=== PATIENT | male | born 1935 | race Caucasian/White ===

== ENCOUNTER 2017-03-15 11:46 | Emergency (ER) | payer MEDICARE, OTHER ==
[~2017-03-15] VITALS: Ht 170.2 cm; Wt 89.0 kg
[2017-03-15 11:50] VITALS: Ht 170.2 cm; Wt 89.0 kg
[2017-03-15] MEDS ORDERED: SOD CHLORIDE 0.9% 1,000 ML IV STA (12:09)
[2017-03-15] MEDS ORDERED: ONDANSETRON 4 MG INJ IV STA (12:09)
[2017-03-15] MEDS ORDERED: HYDROmorphONE 1 MG/ML SYG IV STA (12:09)
--- NOTE | 2017-03-15 12:12 | ERA ---
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 Patient states he has had this occurrence 3 mornings in a row every time he bends over. He denies pain any other time during the day. Patient is using doxycycline daily for recent diagnosis of folliculitis. He denies fevers or chills, no vomiting or diarrhea, no chest pain or shortness of breath, no blood per rectum or melena. ROS All systems reviewed and are negative except as per history of present illness. Medications Home Meds Active Scripts Ibuprofen* (Ibuprofen*) 600 Mg Tablet, 600 MG PO Q8 for PAIN AND/OR INFLAMMATION , #30 TAB Prov:TAYLOR NELSON MD 03/15/17 Reported Medications Clindamycin* Topical (Clindamycin* Topical) 1 %-60 Ml Solution, 1 APPLIC TOP BID , EA 03/15/17 Finasteride* (Finasteride*) 5 Mg Tablet, 5 MG PO DAILY, TAB 03/15/17 Levothyroxine Sodium* (Synthroid*) 125 Mcg Tablet, 125 MCG PO BEFORE BREAKFAST, #30 TAB 03/15/17 Valacyclovir Hcl* (Valacyclovir Hcl*) 500 Mg Tablet, 1000 MG PO DAILY, TAB 03/15/17 Doxycycline* (Vibramycin*) 100 Mg Tab, 50 MG PO DAILY, TAB 03/15/17 Docusate Sodium* (Colace*) 100 Mg Capsule, 100 MG PO BID Y for CONSTIPATION, # 60 CAP 03/15/17 Polyethylene Glycol* (Miralax*) 17 Gm Powd.pack, 17 GM PO DAILY, #30 PACKET 03/15/17 Hydrocortisone* Topical (Hydrocortisone* Topical) 0.5%- 28.35 Gm Oint, 1 APPLIC TOP BID, TUB 03/15/17 Allergies Allergies: Coded Allergies: No Known Allergy (Unverified , 03/15/17) PMhx/Soc Satiety, chronic constipation, recent colonoscopy which revealed large diverticula, Hypothyroidism FmHx Family History: No diabetes Physical Exam Vitals Vital Signs Date Time Temp Pulse Resp B/P Pulse Ox O2 Delivery O2 Flow Rate FiO2 03/15/17 11:50 98.2 99 18 188/85 99 Physical Exam GENERAL: Well-developed, well-nourished, mild discomfort, afebrile HEENT: Moist mucous membranes, pink conjunctiva, no cervical spine tenderness or step-off deformities, no goiter, no jaundice or icterus, extraocular movements intact without pain. No submandibular induration, and no pharyngeal erythema NEURO: Alert and oriented 3, cranial nerves II through XII intact bilaterally, pupils equal round reactive to light, no focal deficits or facial asymmetry, sensation intact distally Strength 5/5 in upper and lower extremities bilaterally CARDIAC: Regular rate and rhythm, no murmurs rubs or gallops LUNGS: Clear bilaterally no wheezing crackles or stridor ABDOMEN: Soft nontender, no guarding, no rigidity, no rebound, no psoas sign no obturator sign. Normoactive bowel sounds SKIN: Warm and dry to touch, no abrasions, contusions, or hematomas, no lacerations, no ecchymosis, no target lesions, and without ulcers EXTREMITIES: No clubbing cyanosis or edema, calves are bilaterally symmetrical, no Homans sign, no popliteal cord sign. Distal pulses equal and bilateral PSYCH: Normal affect without agitation or irritability Result Diagram: 03/15/17 1215 03/15/17 1215 Results 24 hrs Laboratory Tests Test 03/15/17 12:15 White Blood Count 4.310^3/ul Red Blood Count 4.8110^6/ul Hemoglobin 16.1g/dl Hematocrit 46.1% Mean Corpuscular Volume 95.8fl Mean Corpuscular Hemoglobin 33.5pg Mean Corpuscular Hemoglobin Concent 34.9g/dl Red Cell Distribution Width 11.9% Platelet Count 06776^3/UL Mean Platelet Volume 10.5fl Neutrophils % 72.1% Lymphocytes % 20.0% Monocytes % 7.0% Eosinophils % 0.2% Basophils % 0.5% Nucleated Red Blood Cells % 0.0/100WBC Neutrophils # 3.110^3/ul Lymphocytes # 0.910^3/ul Monocytes # 0.310^3/ul Eosinophils # 0.010^3/ul Basophils # 0.010^3/ul Nucleated Red Blood Cells # 0.010^3/ul Prothrombin Time 12.6Sec Prothrombin Time Ratio 1.0 INR International Normalized Ratio 0.94 Urine Color YELLOW Urine Clarity CLEAR Urine pH 8.0 Urine Specific Sumner 1.006 Urine Ketones NEGATIVEmg/dL Urine Nitrite NEGATIVEmg/dL Urine Bilirubin NEGATIVEmg/dL Urine Urobilinogen NEGATIVEmg/dL Urine Leukocyte Esterase NEGATIVELeu/ul Urine Hemoglobin NEGATIVEmg/dL Urine Glucose NEGATIVEmg/dL Urine Total Protein NEGATIVEmg/dl Sodium Level 140mmol/L Potassium Level 4.3mmol/L Chloride Level 105mmol/L Carbon Dioxide Level 26mmol/L Anion Gap 13 Blood Urea Nitrogen 11mg/dl Creatinine 0.87mg/dl Glucose Level 109mg/dl Calcium Level 9.9mg/dl Total Bilirubin 0.9mg/dl Direct Bilirubin 0.00mg/dl Indirect Bilirubin 0.9mg/dl Aspartate Amino Transf (AST/SGOT) 24IU/L Alanine Aminotransferase (ALT/SGPT) 32IU/L Alkaline Phosphatase 68IU/L Total Protein 7.6g/dl Albumin 4.6g/dl Globulin 3.00g/dl Albumin/Globulin Ratio 1.53 Lipase 182U/L Current Medications Medications (Trade) Dose Ordered Sig/Orquidea Route PRN Reason Start Time Stop Time Status Last Admin Dose Admin Hydromorphone HCl (Dilaudid) 1 mg ONCE STAT IV 03/15/17 12:09 03/15/17 12:12 DC Ondansetron HCl (Zofran Inj) 4 mg ONCE STAT IV 03/15/17 12:09 03/15/17 12:12 DC 03/15/17 12:36 Alprazolam 0.5 mg 0.5 mg ONCE ONCE PO 03/15/17 12:30 03/15/17 12:31 DC 03/15/17 12:36 Sodium Chloride (NS) 1,000 ml @ 1,000 mls/hr Q1H STAT IV 03/15/17 12:09 03/15/17 13:08 DC 03/15/17 12:37 Procedures/MDM IV line was established patient was placed on teletypesetter monitor rhythm strip revealed a sinus rhythm at about 70 bpm with upright P and T waves. Patient was afebrile. EKG performed, read by me: 71 bpm, normal sinus rhythm, normal axis, no acute ST segment changes, narrow QRS complex, with good R-wave progression in precordial leads. I administered 1 L normal saline intravenously, hydromorphone 1 mg IV, and alprazolam 0.5 mg p.o. for symptoms. Patient also received Zofran 4 mg IV with good response. CBC and electrolytes were normal, liver function tests were normal, troponin was negative, urine analysis was negative for infection. Departure Diagnosis: Primary Impression: Inguinal hernia TAYLOR NELSON MD Mar 15, 2017 12:12
[2017-03-15] MEDS ORDERED: ALPRAZOLAM 0.25 MG TAB PO ONE (12:30)
[2017-03-15 12:41] LABS: BASOPHILS % 0.5 % (0.0-2.0); EOSINOPHILS % 0.2 % (0.0-7.0); HEMATOCRIT 46.1 % (42.0-52.0); HEMOGLOBIN 16.1 g/dl (14.0-18.0); LYMPHOCYTES # 0.9 10^3/ul (0.8-2.9); MEAN CORPUSCULAR HEMOGLOBIN 33.5 pg (29.0-33.0); MEAN CORPUSCULAR HGB CONC 34.9 g/dl (32.0-37.0); MEAN CORPUSCULAR VOLUME 95.8 fl (82.0-101.0); MEAN PLATELET VOLUME 10.5 fl (7.4-10.4); MONOCYTE # 0.3 10^3/ul (0.3-0.9); NEUTROPHIL # 3.1 10^3/ul (1.6-7.5); NEUTROPHILS % 72.1 % (39.0-77.0); PLATELET COUNT 211 10^3/UL (140-415); RED BLOOD COUNT 4.81 10^6/ul (4.70-6.10); RED CELL DISTRIBUTION WIDTH 11.9 % (11.5-14.5); WHITE BLOOD COUNT 4.3 10^3/ul (4.8-10.8)
[2017-03-15 12:42] LABS: ADD UMIC NO; UR ASCORBIC ACID NEGATIVE (NEGATIVE); UR BILIRUBIN (Dip) NEGATIVE (NEGATIVE); UR BLOOD (Dip) NEGATIVE (NEGATIVE); UR CLARITY CLEAR (CLEAR); UR COLOR YELLOW (YELLOW); UR GLUCOSE (Dip) NEGATIVE (NEGATIVE); UR KETONES (Dip) NEGATIVE (NEGATIVE); UR LEUKOCYTE ESTERASE (Dip) NEGATIVE Leu/ul (NEGATIVE); UR NITRITE (Dip) NEGATIVE (NEGATIVE); UR SPECIFIC GRAVITY (Dip) 1.006 (1.003-1.030); UR TOTAL PROTEIN (Dip) NEGATIVE (NEGATIVE); UR UROBILINOGEN (Dip) NEGATIVE (NEGATIVE)
[2017-03-15 13:07] LABS: ALBUMIN 4.6 g/dl (3.3-4.9); ALBUMIN/GLOBULIN RATIO 1.53; BILIRUBIN,INDIRECT 0.9 mg/dl (0-1.1); BILIRUBIN,TOTAL 0.9 mg/dl (0.2-1.3); CALCIUM 9.9 mg/dl (8.4-10.2); CREATININE 0.87 mg/dl (0.61-1.24); POTASSIUM 4.3 mmol/L (3.5-5.1); TOTAL PROTEIN 7.6 g/dl (6.1-8.1)
[2017-03-15 13:26] LABS: INR 0.94; PROTIME 12.6 Sec (12.2-14.2)
--- NOTE | 2017-03-15 14:01 | RADRPT ---
PROCEDURE: CT Abdomen and Pelvis without contrast. CLINICAL INDICATION: Abdominal and right groin pain TECHNIQUE: CT scan of the abdomen and pelvis without contrast was performed on a multidetector hig h-resolution CT scanner. The patient was scanned without intravenous contrast. Coronal and sagittal reformatted images were obtained from the axial source images. Images were reviewed on a high-resol [employer] PACS workstation. The total exam CTDI equals 13.67 mGy and the total exam DLP equals 869.02 mG y-cm. One or more of the following dose reduction techniques were used: Automated exposure control. Adjustment of the mA and/or kV according to patient size. Use of iterative reconstruction technique. COMPARISON: None FINDINGS: CT abdomen: The lung bases are clear. The heart size is normal, without pericardial thickening or effusion. Th e liver is normal in size and density without focal mass or intrahepatic biliary dilatation. The sp mary is normal in size and homogeneous in density. The stomach is partially collapsed, but is gross ly unremarkable. The pancreas as visualized is normal. The gallbladder is unremarkable. There is n o evidence for biliary dilatation. The adrenal glands are symmetric and normal. The kidneys are normal in size with no hydronephrosis. There is a punctate 2 mm nonobstructing stone in the lower pole right kidney. There is no ureteral stone. There is nonspecific bilateral perineph heavenly fatty stranding. There is mild ectasia of the infrarenal abdominal aorta measures up to 3 cm. There is no retroperito daron lymphadenopathy. The pablo hepatis region is clear. The bowel and mesentery, as visualized, a re equally unremarkable. CT pelvis: The small bowel loops situated within the pelvis are unremarkable. There is a fat-containing small r ight inguinal hernia. Vasectomy clips are noted. The pelvic organs are normal. The pelvic sidewalls and inguinal regions are clear. The sigmoid colon and rectum are remarkable for sigmoid diverticul osis. No mass, lymphadenopathy, or free fluid is seen. No acute inflammation is seen. The surroun ding osseous structures are remarkable for degenerative spondylosis of the spine. No osteolytic or osteoblastic lesion is detected. IMPRESSION: 1. No mass, lymphadenopathy, or focal acute inflammatory process is identified. 2. Punctate 2 mm nonobstructing stone in the lower pole right kidney. No hydronephrosis. No uretera l stone. 3. Fat containing small right inguinal hernia. 4. Mild ectasia of the infrarenal abdominal aorta measures up to 3 cm with scattered atheroscleroti c calcifications. 5. Sigmoid diverticula without evidence of acute diverticulitis. RPTAT: BB .Dejah Zapata MD, Date Time Electronically viewed and signed by .Dejah Zapata MD, on 03/15/2017 14:00 .O/
[2017-03-15] MEDS ORDERED: HC.5O30 TOP (14:29)
[2017-03-15] MEDS ORDERED: POLY17PO6 PO (14:30)
[2017-03-15] MEDS ORDERED: DOCU-144 PO (14:30)
[2017-03-15] MEDS ORDERED: VALA500T PO (14:31)
[2017-03-15] MEDS ORDERED: DOXY100T2 PO (14:31)
[2017-03-15] MEDS ORDERED: FINA5TAB4 PO (14:32)
[2017-03-15] MEDS ORDERED: LEVO125T PO (14:32)
[2017-03-15] MEDS ORDERED: CLI60SOL TOP (14:33)
[2017-03-15] MEDS ORDERED: IBUP-1542 PO (14:53)
[2017-03-15 15:08] VITALS: BP 162/76; PULSE 72; RESP 18; TEMP 97.8
== END 2017-03-15 15:09 | disposition home or self-care (01) ==
LOC: E/R 11:46
DX: K40.90 Unilateral inguinal hernia, without obstruction or gangrene, not specified as recurrent (principal); E03.9 Hypothyroidism, unspecified
CPT/HCPCS: 36415; 74176; 80053; 81003; 83690; 85025; 85610; 87086; 93005; 96374; 99285; J2405; J7030

== ENCOUNTER 2017-03-26 15:43 | Inpatient (IN) | END 2017-04-02 18:20 | disposition home or self-care (01) | DRG 351 | DX: K40.20 Bilateral inguinal hernia, without obstruction or gangrene, not specified as recurrent (principal); E87.1 Hypo-osmolality and hyponatremia; D64.89 Other specified anemias; B00.52 Herpesviral keratitis; E89.0 Postprocedural hypothyroidism; N40.0 Benign prostatic hyperplasia without lower urinary tract symptoms; Z98.890 Other specified postprocedural states; Z87.891 Personal history of nicotine dependence; K59.00 Constipation, unspecified; R33.9 Retention of urine, unspecified; I95.1 Orthostatic hypotension; N50.89 Other specified disorders of the male genital organs ==

== ENCOUNTER 2017-04-16 14:21 | Inpatient (IN) | payer MEDICARE, BC ==
[~2017-04-16] VITALS: Ht 180.3 cm; Wt 79.5 kg
[~2017-04-16 14:21] MED LIST: BETH25TA PO; CLI60SOL TOP; DOCU-144 PO; DOXY100T2 PO; FINA5TAB4 PO; HC.5O30 TOP; HYDR-3498 PO; IBUP-1542 PO; LEVO125T PO; POLY17PO6 PO; TAMS-14 PO; VALA500T PO
[2017-04-16] MEDS ORDERED: FAMOTIDINE 20 MG INJ IV STA (14:23)
[2017-04-16] MEDS ORDERED: ONDANSETRON 4 MG INJ IV STA (14:23)
[2017-04-16] MEDS ORDERED: SOD CHLORIDE 0.9% 1,000 ML IV STA (14:23)
[2017-04-16] MEDS ORDERED: morphine 4 MG/ML VIAL IV STA ×2 (14:23→16:38)
--- NOTE | 2017-04-16 15:03 | RADRPT ---
PROCEDURE: CT Abdomen and Pelvis without contrast. CLINICAL INDICATION: Hernia, pain TECHNIQUE: CT of the abdomen and pelvis was performed on a multi-detector scanner without IV contr ast. Coronal and sagittal images were reformatted from the axial data set. One or more of the foll owing dose reduction techniques were used: automated exposure control, adjustment of the mA and/or k V according to patient size, use of iterative reconstruction technique. CTDI = 12.49 mGy. DLP = 799 .27 mGy-cm. COMPARISON: CT, 03/15/2017 FINDINGS: The lung bases are clear. The heart size is normal, without pericardial effusion. Liver, gallbladd er, biliary tree, pancreas, spleen, adrenal glands and left kidney are unremarkable. Small nonobstru ctive right renal calculus is identified, without ureterolithiasis or obstructive uropathy. The stom ach is grossly unremarkable. The aorta is of normal caliber. Aortic vascular calcifications are present. There is no retroperit archer lymphadenopathy. The pablo hepatis region is clear. No bowel obstruction, free intraperitoneal air or abscess is identified. Scattered colonic diverticu la are seen without diverticulitis. There is no appendicitis or colitis. The patient is status post right inguinal hernia repair. Low density fluid collection is identified in the anterior right pelvi s, measuring 13 x 6 x 5 cm. Additional low density fluid collection is seen in the right inguinal ca nal, measuring 8 x 3 x 3 cm. No solid pelvic mass, free fluid, or lymphadenopathy is identified. The surrounding osseous structures are remarkable for degenerative enthesopathy of the spine. No os teolytic or osteoblastic lesion is detected. IMPRESSION: 1. The patient appears to be status post right inguinal hernia repair. Large low density fluid darrius ections are identified in the surgical bed measuring up to 13 cm in maximal dimension, as described above, new when compared to prior exam, most likely postoperative seromas. No evidence of inflammati on is seen - there is no evidence to suggest abscess. 2. Small nonobstructive right renal calculus is seen, without ureterolithiasis or obstructive uropa thy. 3. Aortoiliac atherosclerotic calcifications are present. 4. Scattered colonic diverticula are seen without diverticulitis. RPTAT: [id number] .Eduardo Arce MD, MD Date Time Electronically viewed and signed by .Eduardo Arce MD, MD on 04/16/2017 15:03 .R/
[2017-04-16 15:12] VITALS: Ht 180.3 cm; Wt 79.5 kg
[2017-04-16] MEDS ORDERED: SOD CHLORIDE 0.9% 1,000 ML IV SCH (15:28)
[2017-04-16] MEDS ORDERED: ONDANSETRON 4 MG INJ IV PRN ×2 (15:30→16:00)
[2017-04-16] MEDS ORDERED: ACETAMINOPHEN 325 MG TAB PO PRN (15:30)
--- NOTE | 2017-04-16 15:33 | ERD ---
ER Documentation Chief Complaint Chief Complaint groin pain R>L x3 days; worse today. p hernia surgery HPI This is an 81-year-old male who is status post right inguinal hernia repair who presents to the emergency room after being evaluated by his primary care physician in office. This patient's primary care physician is Dr. olson about this patient over to the emergency room for evaluation of right sided abdominal pain. The patient describes pain as a sharp pain worse with any movement. The patient was operated on by our general surgeon Dr. Haney. He states that he is having pain but denies any vomiting or diarrhea when he localizes the pain to the right groin area with no radiation. ROS All systems reviewed and are negative except as per history of present illness. Medications Home Meds Active Scripts Tamsulosin Hcl* (Flomax*) 0.4 Mg Cap.er.24h, 0.4 MG PO HS for 30 Days, #30 CAP Prov:KATERINA OLSON MD- 04/02/17 Hydrocodone Bit-Acetaminophen (Hydrocodone Bit-APAP) 5-325MG Tablet, 1 TAB PO Q4H Y for PAIN 4-6 for 30 Days, #75 TAB Prov:KATERINA OLSON MD- 04/02/17 Bethanechol Chloride* (Bethanechol Chloride*) 25 Mg Tablet, 25 MG PO TID for 7 Days, #21 TAB Prov:KATERINA OLSON MD- 04/02/17 Ibuprofen* (Ibuprofen*) 600 Mg Tablet, 600 MG PO Q8 for PAIN AND/OR INFLAMMATION , #30 TAB Prov:TAYLOR NELSON MD 03/15/17 Reported Medications Clindamycin* Topical (Clindamycin* Topical) 1 %-60 Ml Solution, 1 APPLIC TOP BID , EA 03/15/17 Finasteride* (Finasteride*) 5 Mg Tablet, 5 MG PO DAILY, TAB 03/15/17 Levothyroxine Sodium* (Synthroid*) 125 Mcg Tablet, 125 MCG PO BEFORE BREAKFAST, #30 TAB 03/15/17 Valacyclovir Hcl* (Valacyclovir Hcl*) 500 Mg Tablet, 1000 MG PO DAILY, TAB 03/15/17 Doxycycline* (Vibramycin*) 100 Mg Tab, 50 MG PO DAILY, TAB 03/15/17 Docusate Sodium* (Colace*) 100 Mg Capsule, 100 MG PO BID Y for CONSTIPATION, # 60 CAP 03/15/17 Polyethylene Glycol* (Miralax*) 17 Gm Powd.pack, 17 GM PO DAILY, #30 PACKET 03/15/17 Hydrocortisone* Topical (Hydrocortisone* Topical) 0.5%- 28.35 Gm Oint, 1 APPLIC TOP BID, TUB 03/15/17 Allergies Allergies: Coded Allergies: No Known Allergy (Unverified , 03/15/17) PMhx/Soc History of Surgery: Yes (bilat abd hernia surgery) Anesthesia Reaction: No Hx Neurological Disorder: No Hx Respiratory Disorders: No Hx Cardiac Disorders: Yes (hypotension) Hx Psychiatric Problems: No Hx Miscellaneous Medical Probl: Yes (inguinal hernias, thyroidectomy, R eye blindness) Hx Alcohol Use: Yes (occasionally) Hx Substance Use: No Hx Tobacco Use: Yes Smoking Status: Former smoker Physical Exam Vitals Vital Signs Date Time Temp Pulse Resp B/P Pulse Ox O2 Delivery O2 Flow Rate FiO2 04/16/17 15:12 97.9 64 16 150/69 97 Physical Exam INITIAL VITAL SIGNS: Reviewed by me GENERAL: The patient is well developed and appropriate for usual state of health in no apparent distress HEENT: Pupils equal, round, and reactive to light. EOMI. There is no scleral icterus. NECK: C-spine is soft and supple, there is no meningismus. There is no cervical lymphadenopathy. LUNGS: Clear to auscultation bilaterally. There are no rales, wheezes or rhonchi. HEART: Regular rate and rhythm, no murmurs, clicks, rubs or gallops. ABDOMEN: Tender to palpation in the right inguinal region, small fluid collection palpated, soft, non-tender, non-distended. There are bowel sounds in all four quadrants. No rebound or guarding. EXTREMITIES: There is no peripheral cyanosis or edema. No focal swelling or erythema. NEUROLOGICAL: The patient moves all four extremities with 5/5 strength. Cranial nerves II - XII are intact. Normal gait. Alert and oriented SKIN: There is no apparent rash or petechiae. HEME/LYMPHATIC: There is no evidence of excessive bruising or lymphedema. PSYCHIATRIC: The patient does not appear anxious or depressed. Results 24 hrs Laboratory Tests Test 04/16/17 14:40 White Blood Count Pending Red Blood Count Pending Hemoglobin Pending Hematocrit Pending Mean Corpuscular Volume Pending Mean Corpuscular Hemoglobin Pending Mean Corpuscular Hemoglobin Concent Pending Red Cell Distribution Width Pending Platelet Count Pending Mean Platelet Volume Pending Current Medications Medications (Trade) Dose Ordered Sig/Orquidea Route PRN Reason Start Time Stop Time Status Last Admin Dose Admin Sodium Chloride (NS) 1,000 ml @ 1,000 mls/hr Q1H STAT IV 04/16/17 14:23 04/16/17 15:22 DC 04/16/17 15:07 Morphine Sulfate (morphine) 4 mg ONCE STAT IV 04/16/17 14:23 04/16/17 14:25 DC 04/16/17 15:07 Ondansetron HCl (Zofran Inj) 4 mg ONCE STAT IV 04/16/17 14:23 04/16/17 14:25 DC 04/16/17 15:07 Famotidine (Pepcid Iv) 20 mg ONCE STAT IV 04/16/17 14:23 04/16/17 14:25 DC 04/16/17 15:07 Procedures/MDM CT abdomen pelvis without: . The patient appears to be status post right inguinal hernia repair. Large low density fluid collections are identified in the surgical bed measuring up to 13 cm in maximal dimension, as described above , new when compared to prior exam, most likely postoperative seromas. No evidence of inflammation is seen - there is no evidence to suggest abscess. 2. Small nonobstructive right renal calculus is seen, without ureterolithiasis or obstructive uropathy. 3. Aortoiliac atherosclerotic calcifications are present. 4. Scattered colonic diverticula are seen without diverticulitis. This 81-year-old male presents to the ER for evaluation of abdominal pain. The patient did have a right inguinal hernia repair done by Dr. Haney. The patient was brought to the emergency room by his primary care physician who is concerned for possible incarcerated hernia. When I evaluated this patient he was in moderate distress secondary to pain. The patient underwent a CT of the abdomen and pelvis was just reveals small cyst fluid reaction in the right inguinal region consistent with a seroma. This patient has no signs of incarcerated hernia at this time. His pain is a slightly improved morphine however the patient continues to be in pain. I have contacted his primary care physician, Dr. Weir who agrees this patient can be placed in for admission at this time for abdominal pain. I have spoken to the nurse practitioner who is working with Dr. Haney was at bedside and states that they will likely drain the seroma. Departure Diagnosis: Primary Impression: Postoperative seroma Additional Impressions: Groin pain, lower right quadrant Intractable abdominal pain Condition: Stable GENARO PICHARDO DO Apr 16, 2017 15:33
--- NOTE | 2017-04-16 15:59 | CONS ---
Date/Time of Note Date/Time of Note DATE: 04/16/17 TIME: 15:38 Assessment/Plan Assessment/Plan Chief Complaint/Hosp Course 1. Large low density fluid collections are identified in the surgical bed, likely seroma: -IR drain with fluid for culture -pain management to right groin 2. Right groin pain 2/2 #1-improved -pain management -ice pack to area -as above 3. Scrotal edema: improved -elevate scrotum 4. Hypothyroid -medical management 5. BPH: -sontinue medical management -encourage frequent bladder emptying 6. Constipation -bowel regimen optimization Thank you. Patient seen and examined in collaboration with Dr. Jose Juan Haney. Problems: Consultation Date/Type/Reason Admit Date/Time Date of Consultation: Apr 16, 2017 Type of Consultation: Surgical Reason for Consultation Right inguinal pain, s/p hernia repair, possible recurrent hernia Referring Provider: KATERINA FAUSTIN MD- Hx of Present Illness Jose Juan Medellin is an 81 yo man who is known to our service from a previous admission. He has significant history of bilateral hernia repair, done on March 30 of this year. He has been home recuperating, without pain or limitation in ambulation or movement. Two days ago however, he began having pain on his right groin area, described as sharp and constant. The pain began radiating down to his right leg. Pain worsens with movement. No c/o numbness or tingling. At this point he decided to seek care in the ED. CT of the pelvis shows Large low density fluid collections are identified in the surgical bed measuring up to 13 cm in maximal dimension. General surgery was asked to consult. Constitutional: No chills Eyes: No visual change ENT: No congestion Respiratory: No cough, No shortness of breath Cardiovascular: No chest pain, No lightheadedness, No palpitations Gastrointestinal: No constipation, No decreased appetite, No diarrhea, No nausea Genitourinary: No dysuria, No hematuria Musculoskeletal: No back pain Skin: No pruritis Neurologic: No focal-weakness, No seizure, No syncope Endocrine: No polydypsia, No polyuria Psychological: No no complaints Immunologic: No pruritis, No urticaria Past Medical History Inguinal hernias Abdominal pain C-spine disease Chronic hypotension Hx of symptomatic goiter Hypothyroidism Hx of periodontal disease Hx of ocular herpres, right BPH Past Surgical History Epidural Thyroidectomy Appendectomy Right eye conjunctival flap Mandible reconstruction Bilateral meniscal repair. Bilateral inguinal repair Family History Significant Family History: no pertinent family hx Social History Smoking Status: Former smoker Exam/Review of Systems Vital Signs Vitals Vital Signs Date Time Temp Pulse Resp B/P Pulse Ox O2 Delivery O2 Flow Rate FiO2 04/16/17 15:12 97.9 64 16 150/69 97 Exam Constitutional: alert, oriented Psych: nl mood/affect Head: atraumatic, normocephalic Eyes: nl lids, nl sclera ENMT: mucosa pink and moist, nl nasal mucosa & septum Neck: non-tender, supple Respiratory: clear to auscultation, normal air movement Cardiovascular: nl pulses, regular rate and rhythm Gastrointestinal: non-tender, other (visible lump right groin tender to touch) , soft, tender (right pelvis) Genitourinary - Male: No nl scrotum (righ scrotum larger than left) Musculoskeletal: nl extremities to inspection Extremities: normal pulses, No edema Neurological: nl mental status, nl speech, nl strength Skin: nl turgor, No rash or lesions Results Results 24 hrs Laboratory Tests Test 04/16/17 14:40 White Blood Count Pending Red Blood Count Pending Hemoglobin Pending Hematocrit Pending Mean Corpuscular Volume Pending Mean Corpuscular Hemoglobin Pending Mean Corpuscular Hemoglobin Concent Pending Red Cell Distribution Width Pending Platelet Count Pending Mean Platelet Volume Pending Lactic Acid Level 1.8 Medications Medications Current Medications Sodium Chloride (NS) 1,000 ml @ 80 mls/hr [id number] IV ; Start 04/16/17 at 15:28 ; Stop 04/17/17 at 03:57 PRINCESS POP NP Apr 16, 2017 15:59
[2017-04-16] MEDS ORDERED: hydrALAzine 20 MG INJ IV PRN (16:00)
[2017-04-16] MEDS ORDERED: CITR454 PO (16:54)
[2017-04-16 18:18] VITALS: BP 184/79; RESP 20
[2017-04-16] MEDS ORDERED: ALPRAZOLAM 0.25 MG TAB PO PRN (19:30)
[2017-04-16] MEDS: POLYETHYLENE GLYCOL 17 GM PACKET PO SCH (20:35)
[2017-04-16] MEDS: PSYLLIUM 28% PACKET PO SCH (20:35)
[2017-04-16] MEDS: morphine 4 MG/ML VIAL IV PRN ×2 (20:35→23:38)
[2017-04-16 20:37] VITALS: BP 161/71; RESP 18
[2017-04-16] MEDS: DOCUSATE SODIUM 100 MG CAP PO SCH (20:38)
[2017-04-16] MEDS: VALACYCLOVIR 500 MG TAB PO SCH (20:40)
[2017-04-16] MEDS: BETHANECHOL 25 MG TAB PO SCH (20:41)
[2017-04-17] MEDS: morphine 4 MG/ML VIAL IV PRN (02:01)
--- NOTE | 2017-04-17 02:07 | HP ---
DATE OF ADMISSION: 04/16/2017 ADMITTING DIAGNOSIS: Intractable right groin pain, probable seroma of the right inguinal hernia rep air site. HISTORY OF PRESENT ILLNESS: The patient is an 81-year-old male status post bilateral ingu inal hernia repair approximately 2-1/2 weeks ago. The patient presented to my office today with sev ere right groin pain with swelling with inability to ambulate and/or lie down without significant pa in. The patient was feeling fine earlier in the week with decreasing pain, but then last night and this morning started having severe right groin pain. The patient was evaluated by me in my office a nd was found to have a large swelling in the right groin that was exquisitely tender and not reducib le. The patient was sent to the emergency room for further evaluation. Patient was found to have p ossible seroma there. REVIEW OF SYSTEMS: No fevers, chills or night sweats. Patient complains of some constipation, but has not been straining. No shortness of breath, no chest pain, no palpitations. PAST MEDICAL HISTORY: Orthostatic hypotension, hypothyroidism, chronic herpetic conjunctivitis, BPH , chronic constipation, urinary retention. PAST SURGICAL HISTORY: Status post bilateral inguinal hernia repair laparoscopically. FAMILY HISTORY: Unremarkable. MEDICATIONS: 1. Flomax 0.4 mg at bedtime. 2. Proscar 5 mg daily. 3. Bethanechol 25 mg t.i.d. 4. Levothyroxine 125 mcg daily. 5. MiraLax twice a day. 6. Citrucel twice a day. 7. Colace 100 mg b.i.d. 8. Valtrex 1000 mg b.i.d. SOCIAL HISTORY: The patient is , smokes approximately a pack of cigarettes a day. No alcoho l use. PHYSICAL EXAMINATION: VITAL SIGNS: Temperature 97.9, blood pressure 150/69, pulse 64, respirations 16, oxygen saturation 97%. GENERAL: Well-developed, ill-appearing male in moderate distress. SKIN: Decreased turgor. No rashes. HEENT: EOMI. Oropharynx clear with decreased mucus pooling. NECK: No jugular venous distention, 2+ carotid upstroke. CHEST: Clear to auscultation bilaterally. HEART: Regular rate and rhythm. No murmurs, gallops or rubs noted. ABDOMEN: Normoactive bowel sounds. No hepatosplenomegaly. Mild obesity. Right groin area with se brandie tenderness to minimal palpation in the right inguinal region with large palpable nonreducible m ass. No fluctuance, moderate induration, no edema. EXTREMITIES: No cyanosis, clubbing or edema. NEUROLOGIC: Nonfocal. LABORATORY EXAMINATION: Shows a white blood cell count of 5.8, hemoglobin of 14.9, hematocrit of 43 .8, platelet count of 215. Lactic acid 1.8. Urinalysis unremarkable. Abdominal pelvic CT scan ene ws status post right inguinal hernia repair. Large low density fluid collections are identified in the surgical bed measuring up to 13 cm. No evidence of inflammation to suggest abscess with a small nonobstructive right renal calculus present, aortoiliac atherosclerotic changes and scattered colon ic diverticula. IMPRESSION: The patient is an 81-year-old male with large really painful seroma, probable seroma in the right inguinal region. The patient is to be admitted to medical surgery for further evaluation and treatment and pain control. We will have surgery assist in evaluation and treatment of the lar ge seroma. 1. Inguinal, intractable. Will admit the patient to med-surg. Will give morphine q.3 hours p.r.n. moderate to severe pain. We will give Tylenol for mild pain. The patient may need drainage of the seroma in order to relieve some of the pressure and pain prior to being discharged home. The patie nt does not need any antibiotics at this time as we doubt infection. 2. Hypothyroidism. Will continue with the patient's levothyroxine. 3. Constipation. We will continue with the patient's Colace, MiraLax and give Metamucil instead of Citrucel, and continue with diet. 4. Chronic herpetic conjunctivitis. We will continue with patient's Valtrex 1 gram b.i.d. The pat ient usually uses 1 daily but when under stress we increase the dosage to twice daily for better cov erage. 5. Benign prostatic hypertrophy. We will continue with the patient's medications. 6. Urinary retention. We will continue with the bethanechol. Dictated By: KATERINA FAUSTIN MD SR/NTS Conf#: [id number] DID#: [id number]
[2017-04-17 07:27] VITALS: BP 133/63; RESP 18
[2017-04-17] MEDS: HYDROmorphONE 2 MG/ML SYG IV PRN ×2 (07:56→14:46)
[2017-04-17] MEDS: PSYLLIUM 28% PACKET PO SCH (09:00)
[2017-04-17] MEDS: POLYETHYLENE GLYCOL 17 GM PACKET PO SCH (09:00)
[2017-04-17] MEDS: DOCUSATE SODIUM 100 MG CAP PO SCH (09:00)
[2017-04-17] MEDS: VALACYCLOVIR 500 MG TAB PO SCH ×2 (09:26→22:33)
[2017-04-17] MEDS: FINASTERIDE 5 MG TAB PO SCH (09:26)
[2017-04-17] MEDS: BETHANECHOL 25 MG TAB PO SCH ×3 (09:26→22:33)
[2017-04-17] MEDS: LEVOTHYROXINE 125 MCG TAB PO SCH (09:28)
--- NOTE | 2017-04-17 12:04 | PN ---
Date/Time of Note Date/Time of Note DATE: 04/17/17 TIME: 11:56 Assessment/Plan VTE Prophylaxis VTE Prophylaxis Intervention: contraindicated VTE Contraindication Reason: bleeding Lines/Catheters IV Catheter Type (from Nrs): Peripheral IV Urinary Cath still in place: No Assessment/Plan Assessment/Plan IMPRESSION: The patient is an 81-year-old male with large really painful seroma , probable seroma in the right inguinal region. The patient is to be admitted to medical surgery for further evaluation and treatment and pain control. We will have surgery assist in evaluation and treatment of the large seroma. 1. Inguinal, intractable. Will give morphine q.4 or dilaudid. We will give Tylenol for mild pain. The patient may need drainage of the seroma in order to relieve some of the pressure and pain prior to being discharged home. 2. Hypothyroidism. Will continue with the patient's levothyroxine. 3. Constipation. We will continue with the patient's Colace, MiraLax and give Metamucil instead of Citrucel, and continue with diet. 4. Chronic herpetic conjunctivitis. We will continue with patient's Valtrex 1 gram b.i.d. The patient usually uses 1 daily but when under stress we increase the dosage to twice daily for better coverage. 5. Benign prostatic hypertrophy. We will continue with the patient's medications. 6. hematuria reported by the nurse. no ua to confirm yet. will give dose of cipro and get ua. Subjective 24 Hr Interval Summary Free Text/Dictation c/o pain. wanted dilaudid. was tried and now says it makes him goofy. Exam/Review of Systems Vital Signs Vitals Vital Signs Date Time Temp Pulse Resp B/P Pulse Ox O2 Delivery O2 Flow Rate FiO2 04/17/17 07:27 97.8 56 18 133/63 97 04/16/17 17:42 Room Air Intake and Output 04/16/17 04/16/17 04/17/17 15:00 23:00 07:00 Intake Total 1600 ml Output Total 300 ml Balance 1300 ml Results Result Diagram: 04/17/17 0516 04/17/17 0516 Results 24 hrs Laboratory Tests Test 04/16/17 14:40 04/16/17 15:30 04/17/17 05:16 White Blood Count 5.8 4.7 L Red Blood Count 4.45 L 4.03 L Hemoglobin 14.9 13.2 L Hematocrit 43.8 40.2 L Mean Corpuscular Volume 98.4 99.8 Mean Corpuscular Hemoglobin 33.5 H 32.8 Mean Corpuscular Hemoglobin Concent 34.0 32.8 Red Cell Distribution Width 11.9 12.1 Platelet Count 215 199 Mean Platelet Volume 10.3 10.8 H Neutrophils % 79.0 H 54.3 Lymphocytes % 14.6 L 31.8 Monocytes % 5.3 8.5 Eosinophils % 0.3 4.4 Basophils % 0.5 0.8 Nucleated Red Blood Cells % 0.0 0.0 Neutrophils # 4.6 2.6 Lymphocytes # 0.9 1.5 Monocytes # 0.3 0.4 Eosinophils # 0.0 0.2 Basophils # 0.0 0.0 Nucleated Red Blood Cells # 0.0 0.0 Sodium Level 139 141 Potassium Level 4.3 4.2 Chloride Level 105 108 Carbon Dioxide Level 24 28 Anion Gap 14 9 # Blood Urea Nitrogen 10 13 Creatinine 0.85 1.02 Glucose Level 93 80 Lactic Acid Level 1.8 Calcium Level 8.9 9.1 Total Bilirubin 0.5 Direct Bilirubin 0.00 Indirect Bilirubin 0.5 Aspartate Amino Transf (AST/SGOT) 24 Alanine Aminotransferase (ALT/SGPT) 28 Alkaline Phosphatase 64 Total Protein 6.5 Albumin 3.7 Globulin 2.80 Albumin/Globulin Ratio 1.32 Lipase 96 Urine Color YELLOW Urine Clarity CLEAR Urine pH 7.0 Urine Specific [place] 1.008 Urine Ketones NEGATIVE Urine Nitrite NEGATIVE Urine Bilirubin NEGATIVE Urine Urobilinogen NEGATIVE Urine Leukocyte Esterase NEGATIVE Urine Hemoglobin NEGATIVE Urine Glucose NEGATIVE Urine Total Protein NEGATIVE Medications Medications Current Medications Docusate Sodium (Colace) 100 mg BID PO Last administered on 04/16/17 20:38; Admin Dose 100 MG; Start 04/16/17 at 21:00 Bethanechol Chloride (Urecholine) 25 mg TID PO Last administered on 04/17/17 09:26; Admin Dose 25 MG; Start 04/16/17 at 21:00 Finasteride (Proscar) 5 mg DAILY PO Last administered on 04/17/17 09:26; Admin Dose 5 MG; Start 04/17/17 at 09:00 Valacyclovir HCl (Valtrex) 1,000 mg BID PO Last administered on 04/17/17 09: 26; Admin Dose 1,000 MG; Start 04/16/17 at 21:00 Tamsulosin HCl (Flomax) 0.4 mg 21 PO ; Start 04/17/17 at 21:00 Polyethylene Glycol (Miralax) 17 gm BID PO Last administered on 04/16/17 20: 35; Admin Dose 17 GM; Start 04/16/17 at 21:00 Psyllium Hydrophilic Mucilloid (Metamucil) 1 pkt BID PO Last administered on 20:35; Admin Dose 1 PKT; Start 04/16/17 at 21:00 Ondansetron HCl (Zofran Inj) 4 mg Q6 PRN IV NAUSEA AND/OR VOMITING; Start at 16:00 Acetaminophen (Tylenol Tab) 650 mg Q6 PRN PO PAIN OR TEMP ABOVE 38C; Start at 16:00 Levothyroxine Sodium (Synthroid) 125 mcg AM PO Last administered on 04/17/17 09:28; Admin Dose 125 MCG; Start 04/17/17 at 09:00 Alprazolam (Xanax) 0.25 mg HS PRN PO INSOMNIA Last administered on 04/16/17 23:37; Admin Dose 0.25 MG; Start 04/16/17 at 19:30 Hydromorphone HCl (Dilaudid) 3 mg Q4H PRN IV PAIN Last administered on 07:56; Admin Dose 3 MG; Start 04/17/17 at 02:17 PORTILLO MENDOZA MD Apr 17, 2017 12:04
[2017-04-17] MEDS: SOD CHLORIDE 0.9% 1,000 ML IV SCH (12:21)
[2017-04-17 14:19] VITALS: BP 156/67; RESP 18
[2017-04-17] MEDS ORDERED: LIDOCAINE 1% (MDV) 20 ML INJ ONE (15:13)
--- NOTE | 2017-04-17 15:51 | RADRPT ---
PROCEDURE: Ultrasound guided aspiration of right inguinal fluid collection. CLINICAL INDICATION: Right inguinal fluid collection. TECHNIQUE: Prior to the procedure, informed consent was obtained. Risks including bleeding and in fection were explained to the patient. The patient understood was willing to proceed. A procedural pause was performed. The patient's name, date of , and procedure to be performed were clare hayes. Using local anesthetic, sterile technique and ultrasound guidance, a 16-gauge needle was advanced in to the fluid collection in the right inguinal region. 200 ml of serous fluid was aspirated. The flui d was sent for laboratory analysis. The patient tolerated the procedure well. COMPARISON: CT scan of the abdomen and pelvis dated 04/16/2017. FINDINGS: Images demonstrate the needle within the fluid collection in the right inguinal region. Final images demonstrate almost no fluid remaining. IMPRESSION: 1. Satisfactory ultrasound-guided aspiration of fluid collection in the right inguinal region. RPTAT: QQ .Orlin Mcclendon MD, MD Date Time Electronically viewed and signed by .Orlin cMclendon MD, on 04/17/2017 15:44 .R/
[2017-04-17] MEDS: TAMSULOSIN (SR) 0.4 MG CAP PO SCH (17:33)
[2017-04-17] MEDS: CIPROFLOXACIN 250 MG TAB GTB SCH (17:33)
--- NOTE | 2017-04-17 17:35 | PN ---
Date/Time of Note Date/Time of Note DATE: 04/17/17 TIME: 17:26 Assessment/Plan Lines/Catheters IV Catheter Type (from Nrsg): Peripheral IV Fernandez in Place (from Nrsg): No Assessment/Plan Chief Complaint/Hosp Course 1. Large low density fluid collections are identified in the surgical bed, likely seroma: s/p IR drain -fluid sent for culture -pain management to right groin 2. Right groin pain 2/2 #1-improved -pain management -ice pack to area -as above 3. Scrotal edema: improved -elevate scrotum 4. Hypothyroid -medical management 5. BPH: -sontinue medical management -encourage frequent bladder emptying 6. Constipation -bowel regimen optimization Thank you. Patient seen and examined in collaboration with Dr. Jose Juan Haney. Problems: Subjective 24 Hr Interval Summary S/p IR drainage of right pelvic fluid collection. Improved pain. No fevers, chills, sob, congested cough, cp, palpitations, ROM limitations, numbness or tingling of right leg. Exam/Review of Systems Vital Signs Vitals Vital Signs Date Time Temp Pulse Resp B/P Pulse Ox O2 Delivery O2 Flow Rate FiO2 04/17/17 14:19 97.7 60 18 156/67 5 04/16/17 17:42 Room Air Intake and Output 04/16/17 04/16/17 04/17/17 15:00 23:00 07:00 Intake Total 1600 ml Output Total 300 ml Balance 1300 ml Exam Free Text/Dictation Constitutional: alert, oriented Psych: nl mood/affect Head: atraumatic, normocephalic Eyes: nl lids, nl sclera ENMT: mucosa pink and moist, nl nasal mucosa & septum Neck: non-tender, supple Respiratory: clear to auscultation, normal air movement Cardiovascular: nl pulses, regular rate and rhythm Gastrointestinal: non-tender, other (visible lump right groin, softer, improved tenderness), soft, tender (right pelvis) Genitourinary - Male: No nl scrotum (scrotal edema improved) Musculoskeletal: nl extremities to inspection Extremities: normal pulses, No edema Neurological: nl mental status, nl speech, nl strength Skin: nl turgor, No rash or lesions Results Result Diagram: 04/17/1751504/17/17515 PRINCESS POP NP Apr 17, 2017 17:35
[2017-04-17 20:00] VITALS: BP 148/65; RESP 20
[2017-04-17] MEDS ORDERED: DOXY40CA PO (21:54)
[2017-04-17] MEDS ORDERED: METH500T50 PO (21:54)
[2017-04-17] MEDS: CITRUCEL 500 MG PO SCH (23:00)
[2017-04-18] MEDS: POLYETHYLENE GLYCOL 17 GM PACKET PO SCH ×3 (00:47→22:22)
[2017-04-18] MEDS: DOCUSATE SODIUM 100 MG CAP PO SCH ×3 (00:47→22:21)
[2017-04-18] MEDS: SOD CHLORIDE 0.9% 1,000 ML IV SCH ×3 (00:47→23:52)
[2017-04-18] MEDS: HYDROmorphONE 2 MG/ML SYG IV PRN (00:48)
[2017-04-18 02:00] VITALS: BP 116/58; RESP 20
[2017-04-18] MEDS: CIPROFLOXACIN 250 MG TAB GTB SCH ×2 (06:29→19:05)
[2017-04-18 07:43] VITALS: BP 130/60; RESP 18
[2017-04-18] MEDS: LEVOTHYROXINE 125 MCG TAB PO SCH (08:08)
[2017-04-18] MEDS: FINASTERIDE 5 MG TAB PO SCH (08:10)
[2017-04-18] MEDS: VALACYCLOVIR 500 MG TAB PO SCH ×2 (08:10→22:21)
[2017-04-18] MEDS: BETHANECHOL 25 MG TAB PO SCH ×3 (08:11→22:21)
[2017-04-18] MEDS: CITRUCEL 500 MG PO SCH ×2 (08:13→22:22)
--- NOTE | 2017-04-18 10:50 | PN ---
Date/Time of Note Date/Time of Note DATE: 04/18/17 TIME: 10:49 Assessment/Plan VTE Prophylaxis VTE Prophylaxis Intervention: ambulation Lines/Catheters IV [facility] Type [facility]from [facility] Peripheral IV Urinary Cath still in place: No Assessment/Plan Chief Complaint/Hosp Course s/p IR drain 04/18 hematuria- at the end of urination.- has renal calculi. Problems: Assessment/Plan IMPRESSION: The patient is an 81-year-old male with large really painful seroma , probable seroma in the right inguinal region. The patient is to be admitted to medical surgery for further evaluation and treatment and pain control. We will have surgery assist in evaluation and treatment of the large seroma. 1. Inguinal, intractable. Will give morphine q.4 or dilaudid. We will give Tylenol for mild pain. The patient may need drainage of the seroma in order to relieve some of the pressure and pain prior to being discharged home. ---s/p drainage and still has bulge. less pain. 2. Hypothyroidism. Will continue with the patient's levothyroxine. 3. Constipation. We will continue with the patient's Colace, MiraLax and give Metamucil instead of Citrucel, and continue with diet. 4. Chronic herpetic conjunctivitis. We will continue with patient's Valtrex 1 gram b.i.d. The patient usually uses 1 daily but when under stress we increase the dosage to twice daily for better coverage. 5. Benign prostatic hypertrophy. We will continue with the patient's medications. 6. hematuria reported by the nurse. no ua to confirm yet. will give dose of cipro and get ua. ua was neg on 04/17. pt recent ct of abd/pel shows right renal calculi...possible source? consider urology consult tomorrow. Subjective 24 Hr Interval Summary Free Text/Dictation cont to have blood afte urination. denies dysuria. Exam/Review of Systems Vital Signs Vitals Vital Signs Date Time Temp Pulse Resp B/P Pulse Ox O2 Delivery O2 Flow Rate FiO2 04/18/17 07:43 98.1 61 18 130/60 96 04/16/17 17:42 Room Air Intake and Output 04/17/17 04/17/17 04/18/17 15:00 23:00 07:00 Intake Total 1560 ml 1440 ml Output Total 1900 ml 900 ml Balance -340 ml 540 ml Exam back- no pain with palp groin- no redness . mild soft bulge right side. no bleeding from drain site. Results Result Diagram: 04/17/1751504/17/17515 Medications Medications Current Medications Docusate Sodium (Colace) 100 mg BID PO Last administered on 04/18/17 08:09; Admin Dose 100 MG; Start 04/16/17 at 21:00 Bethanechol Chloride (Urecholine) 25 mg TID PO Last administered on 04/18/17 08:11; Admin Dose 25 MG; Start 04/16/17 at 21:00 Finasteride (Proscar) 5 mg DAILY PO Last administered on 04/18/17 08:10; Admin Dose 5 MG; Start 04/17/17 at 09:00 Valacyclovir HCl (Valtrex) 1,000 mg BID PO Last administered on 04/18/17 08: 10; Admin Dose 1,000 MG; Start 04/16/17 at 21:00 Polyethylene Glycol (Miralax) 17 gm BID PO Last administered on 04/18/17 08: 09; Admin Dose 17 GM; Start 04/16/17 at 21:00 Ondansetron HCl (Zofran Inj) 4 mg Q6 PRN IV NAUSEA AND/OR VOMITING; Start at 16:00 Acetaminophen (Tylenol Tab) 650 mg Q6 PRN PO PAIN OR TEMP ABOVE 38C; Start at 16:00 Levothyroxine Sodium (Synthroid) 125 mcg AM PO Last administered on 04/18/17 08:08; Admin Dose 125 MCG; Start 04/17/17 at 09:00 Alprazolam (Xanax) 0.25 mg HS PRN PO INSOMNIA Last administered on 04/16/17 23:37; Admin Dose 0.25 MG; Start 04/16/17 at 19:30 Hydromorphone HCl (Dilaudid) 3 mg Q4H PRN IV PAIN Last administered on 00:48; Admin Dose 3 MG; Start 04/17/17 at 02:17 Ciprofloxacin 250 mg 250 mg BID@,18 GTB Last administered on 04/18/17 06:29 ; Admin Dose 250 MG; Start 04/17/17 at 18:00; Stop 04/20/17 at 06:01 Sodium Chloride (NS) 1,000 ml @ 80 mls/hr [id number] IV Last administered on 00:47; Admin Dose 80 MLS/HR; Start 04/17/17 at 12:30 Patient Own Medication 2 ea BID PO Last administered on 04/18/17 08:13; Admin Dose 2 EA; Start 04/17/17 at 23:00 PORTILLO MENDOZA MD Apr 18, 2017 10:50
--- NOTE | 2017-04-18 14:04 | CONS ---
Date/Time of Note Date/Time of Note DATE: 04/18/17 TIME: 13:40 Assessment/Plan Assessment/Plan Chief Complaint/Hosp Course 81-year-old male underwent laparoscopic bilateral inguinal hernia repair on March 30, 2017, presented to the hospital was right inguinal pain. CT scan of the abdomen and pelvis showed seroma which was aspirated yesterday. The patient reports noticing blood on his underwear since the hernia repair. He just voided before I saw him bladder scan showed postvoid residual of over 500 mL, I had him urinate a second time and he did 140 mL then the bladder scan did show a postvoid residual of 330 mL. The voided urine appeared to be clear. The patient does have a history of high postvoid residual and has undergone a transurethral microwave treatment of his prostate by Dr. García at [facility]. He also did have a cystoscopy in the past 3-4 months there is no report of any bladder tumor. He does have an appointment to see his urologist this week and I told him to mention that he has been noticing the blood on his underwear. Since he has a high postvoid residual and he is already on tamsulosin, finasteride, and Urecholine I recommended to him to urinate every hour and try to urinate again(double void). Do not wait till he has urge to urinate. Hopefully with this will avoid having to insert the Fernandez catheter for him. Problems: Consultation Date/Type/Reason Admit Date/Time Date of Consultation: Apr 18, 2017 Type of Consultation: Urology Reason for Consultation Hematuria Referring Provider: TAYLOR FRITZ MD Hx of Present Illness 81-year-old male underwent laparoscopic bilateral inguinal hernia repair on March 30, 2017. He presented to the hospital on April 16 was a right inguinal pain and was found to have a seroma and that was drained under ultrasound guidance yesterday. Patient states he has been noticing bloodstain on his underwear and the floor since the surgery. Patient is known to have had difficulty urinating and has been seeing a urologist at [facility] who did a transurethral microwave treatment on him 2 years ago and according to the patient he had a cystoscopy in the past to 3 months. He usually urinates about 2 times at night and during the day every 2-3 hours. There is no dysuria and no history of urinary tract infection. Patient has been on tamsulosin, finasteride, and recently Urecholine 25 mg 3 times a day. The urological consultation was requested because of the blood from his urethra Constitutional: no complaints, No chills Eyes: no complaints, No visual change ENT: no complaints, No congestion Respiratory: no complaints, No cough, No shortness of breath Cardiovascular: No chest pain, No lightheadedness, No palpitations Gastrointestinal: constipation (He takes laxatives twice a day for the constipation), No decreased appetite, No diarrhea, No nausea Genitourinary: other (Urinary frequency), No dysuria, No hematuria Musculoskeletal: No back pain Skin: No pruritis Neurologic: No focal-weakness, No seizure, No syncope Endocrine: No polydypsia, No polyuria Psychological: nl mood/affect Immunologic: No pruritis, No urticaria Past Medical History Medical History: hypothyroid, other (History of constipation, high postvoid residual) Past Surgical History Past Surgical Hx: other (Transurethral microwave treatment of the prostate, laparoscopic bilateral inguinal hernia repair, cystoscopy by his urologist) Family History Significant Family History: no pertinent family hx Social History Smoking Status: Current every day smoker (Smokes 2 cigars a day, was smoking 1 pack of cigarettes a day but quit 20 years ago) Exam/Review of Systems Vital Signs Vitals Vital Signs Date Time Temp Pulse Resp B/P Pulse Ox O2 Delivery O2 Flow Rate FiO2 04/18/17 07:43 98.1 61 18 130/60 96 04/16/17 17:42 Room Air Intake and Output 04/17/17 04/17/17 04/18/17 15:00 23:00 07:00 Intake Total 1560 ml 1440 ml Output Total 1900 ml 900 ml Balance -340 ml 540 ml Exam Constitutional: alert, oriented Psych: no complaints Head: atraumatic Eyes: nl conjunctiva ENMT: nl external ears & nose Neck: supple Respiratory: normal air movement Cardiovascular: No edema Gastrointestinal: soft Genitourinary - Male: other (Distended bladder, he just voided, bladder scan shows a postvoid residual over 500 mL, I had him urinate a second time and he did 140 mL repeat bladder scan shows a postvoid residual of 330 mL) Musculoskeletal: nl extremities to inspection Extremities: No calf tenderness Skin: nl turgor Results Result Diagram: 04/17/1716 04/17/17515 Imaging Free Text/Dictation CT scan of the abdomen and pelvis: 1. The patient appears to be status post right inguinal hernia repair. Large low density fluid collections are identified in the surgical bed measuring up to 13 cm in maximal dimension, as described above, new when compared to prior exam, most likely postoperative seromas. No evidence of inflammation is seen - there is no evidence to suggest abscess. 2. Small nonobstructive right renal calculus is seen, without ureterolithiasis or obstructive uropathy. 3. Aortoiliac atherosclerotic calcifications are present. 4. Scattered colonic diverticula are seen without diverticulitis. The patient underwent ultrasound-guided aspiration of the seroma yesterday Medications Medications Current Medications Docusate Sodium (Colace) 100 mg BID PO Last administered on 04/18/17 08:09; Admin Dose 100 MG; Start 04/16/17 at 21:00 Bethanechol Chloride (Urecholine) 25 mg TID PO Last administered on 04/18/17 08:11; Admin Dose 25 MG; Start 04/16/17 at 21:00 Finasteride (Proscar) 5 mg DAILY PO Last administered on 04/18/17 08:10; Admin Dose 5 MG; Start 04/17/17 at 09:00 Valacyclovir HCl (Valtrex) 1,000 mg BID PO Last administered on 04/18/17 08: 10; Admin Dose 1,000 MG; Start 04/16/17 at 21:00 Polyethylene Glycol (Miralax) 17 gm BID PO Last administered on 04/18/17 08: 09; Admin Dose 17 GM; Start 04/16/17 at 21:00 Ondansetron HCl (Zofran Inj) 4 mg Q6 PRN IV NAUSEA AND/OR VOMITING; Start at 16:00 Acetaminophen (Tylenol Tab) 650 mg Q6 PRN PO PAIN OR TEMP ABOVE 38C; Start at 16:00 Levothyroxine Sodium (Synthroid) 125 mcg AM PO Last administered on 04/18/17 08:08; Admin Dose 125 MCG; Start 04/17/17 at 09:00 Alprazolam (Xanax) 0.25 mg HS PRN PO INSOMNIA Last administered on 04/16/17 23:37; Admin Dose 0.25 MG; Start 04/16/17 at 19:30 Hydromorphone HCl (Dilaudid) 3 mg Q4H PRN IV PAIN Last administered on 00:48; Admin Dose 3 MG; Start 04/17/17 at 02:17 Ciprofloxacin 250 mg 250 mg BID@06,18 GTB Last administered on 04/18/17 06:29 ; Admin Dose 250 MG; Start 04/17/17 at 18:00; Stop 04/20/17 at 06:01 Sodium Chloride (NS) 1,000 ml @ 80 mls/hr [id number] IV Last administered on 00:47; Admin Dose 80 MLS/HR; Start 04/17/17 at 12:30 Patient Own Medication 2 ea BID PO Last administered on 04/18/17 08:13; Admin Dose 2 EA; Start 04/17/17 at 23:00 DELVIS MANTILLA MD Apr 18, 2017 13:53
[2017-04-18] MEDS: TAMSULOSIN (SR) 0.4 MG CAP PO SCH (19:05)
[2017-04-18] MEDS: HYDROCODONE/APAP (5/325) TAB PO PRN (19:08)
[2017-04-18 19:55] VITALS: BP 177/77; RESP 18
[2017-04-18 20:28] VITALS: BP 163/73; RESP 18
[2017-04-18] MEDS ORDERED: PANTOPRAZOLE (EC) 40 MG TAB PO ONE (21:30)
[2017-04-18] MEDS: MAGNESIUM HYDROXIDE 30ML CUP PO PRN (22:21)
--- NOTE | 2017-04-18 23:03 | PN ---
Date/Time of Note Date/Time of Note DATE: 04/18/17 TIME: 22:55 Assessment/Plan Lines/Catheters IV Catheter Type (from Nrsg): Saline Lock Fernandez in Place (from Nrsg): No Assessment/Plan Chief Complaint/Hosp Course 1. Large low density fluid collections are identified in the surgical bed, likely seroma: s/p IR drain; cultures: no growth -pain management to right groin 2. Right groin pain 2/2 #1-improved -pain management -ice pack to area -as above 3. Scrotal edema: improved -elevate scrotum 4. Hypothyroid -medical management 5. BPH: -sontinue medical management -encourage frequent bladder emptying 6. Constipation -bowel regimen optimization 7. Hematuria: drops of blood after urination -Urology consult appreciated Thank you. Patient seen and examined in collaboration with Dr. Jose Juan Haney. Problems: Subjective 24 Hr Interval Summary Very anxious. Reports improved pain in right groin but is worried about increasing pain in his groin. States he has drops of blood in clothing after urinating, last urine did not show hematuria. Exam/Review of Systems Vital Signs Vitals Vital Signs Date Time Temp Pulse Resp B/P Pulse Ox O2 Delivery O2 Flow Rate FiO2 04/18/17 20:28 65 18 163/73 99 04/18/17 19:55 98.0 04/16/17 17:42 Room Air Intake and Output 04/17/17 04/17/17 04/18/17 15:00 23:00 07:00 Intake Total 1560 ml 1440 ml Output Total 1900 ml 900 ml Balance -340 ml 540 ml Exam Free Text/Dictation Constitutional: alert, oriented Psych: nl mood/affect Head: atraumatic, normocephalic Eyes: nl lids, nl sclera ENMT: mucosa pink and moist, nl nasal mucosa & septum Neck: non-tender, supple Respiratory: clear to auscultation, normal air movement Cardiovascular: nl pulses, regular rate and rhythm Gastrointestinal: non-tender, other (visible lump right groin, softer, improved tenderness), soft, tenderness (right pelvis)-improved Genitourinary - Male: No nl scrotum (scrotal edema improved) Musculoskeletal: nl extremities to inspection Extremities: normal pulses, No edema Neurological: nl mental status, nl speech, nl strength Skin: nl turgor, No rash or lesions Results Result Diagram: 04/17/17 0516 04/17/17 0516 PRINCESS POP NP Apr 18, 2017 23:03
[2017-04-19 00:39] VITALS: BP 142/60; RESP 18
[2017-04-19] MEDS: HYDROmorphONE 2 MG/ML SYG IV PRN (00:50)
[2017-04-19] MEDS: HYDROCODONE/APAP (5/325) TAB PO PRN ×5 (00:51→22:00)
[2017-04-19] MEDS: PANTOPRAZOLE (EC) 40 MG TAB PO SCH (06:22)
[2017-04-19] MEDS: CIPROFLOXACIN 250 MG TAB GTB SCH ×2 (06:22→17:04)
[2017-04-19] MEDS: LEVOTHYROXINE 125 MCG TAB PO SCH (07:48)
[2017-04-19 07:55] VITALS: BP 191/81; RESP 20
[2017-04-19] MEDS ORDERED: hydrALAzine 20 MG INJ IV PRN (08:00)
[2017-04-19] MEDS: CITRUCEL 500 MG PO SCH ×2 (08:36→20:25)
[2017-04-19] MEDS: BETHANECHOL 25 MG TAB PO SCH ×3 (08:36→20:24)
[2017-04-19] MEDS: FINASTERIDE 5 MG TAB PO SCH (08:36)
[2017-04-19] MEDS: DOCUSATE SODIUM 100 MG CAP PO SCH ×2 (08:36→20:24)
[2017-04-19] MEDS: VALACYCLOVIR 500 MG TAB PO SCH ×2 (08:37→20:24)
[2017-04-19] MEDS: POLYETHYLENE GLYCOL 17 GM PACKET PO SCH ×2 (08:37→20:24)
[2017-04-19] MEDS: SOD CHLORIDE 0.9% 1,000 ML IV SCH ×2 (08:45→22:50)
--- NOTE | 2017-04-19 08:53 | PN ---
DATE: 04/19/2017 SUBJECTIVE: The patient is complaining of increasing pain and swelling in the right groin again, ot herwise the patient is feeling all right, no more hematuria. OBJECTIVE: VITAL SIGNS: Temperature 97.8, pulse 69, respirations 18, blood pressure 142/60, oxygen saturation 96% on room air. GENERAL: Well-developed, well-nourished male in no acute distress, sitting up in bed. LUNGS: Clear to auscultation bilaterally. HEART: Regular rate and rhythm. ABDOMEN: Soft, nontender. Right groin area with approximately 6 x 8 cm swelling right inguinal reg ion consistent with seroma, and tender to palpation, mild scrotal edema. EXTREMITIES: Trace bilateral lower extremity edema. LABORATORY DATA: Culture results from seroma drainage is negative to date. ASSESSMENT AND PLAN 1. Intractable right groin pain, seroma. The patient is improved, but the seroma is increasing in size again and will need to be drained again. We will discuss with Dr. Haney further plans as far as putting in a drain and leaving it or just draining the fluid that is there. We will continue [facility] pain management at this time. Continue with inpatient status. 2. Hematuria, improved. We will continue with antibiotics. 3. Urinary retention/BPH. Appreciate Dr. Rico's consultation. We will continue with current in dications and encourage patient to urinate every hour while awake. 4. Orthostatic hypotension, stable. Continue with blood pressure monitoring, but hold off on any m eds. 5. Hypothyroidism, stable. Continue with patient's medications. Dictated By: KATERINA FAUSTIN MD, SR/JANETTE Conf#: [id number] DID#: [id number]
--- NOTE | 2017-04-19 08:53 | PN ---
DATE: 04/19/2017 SUBJECTIVE: The patient is complaining of increasing pain and swelling in the right groin again, ot herwise the patient is feeling all right, no more hematuria. OBJECTIVE: VITAL SIGNS: Temperature 97.8, pulse 69, respirations 18, blood pressure 142/60, oxygen saturation 96% on room air. GENERAL: Well-developed, well-nourished male in no acute distress, sitting up in bed. LUNGS: Clear to auscultation bilaterally. HEART: Regular rate and rhythm. ABDOMEN: Soft, nontender. Right groin area with approximately 6 x 8 cm swelling right inguinal reg ion consistent with seroma, and tender to palpation, mild scrotal edema. EXTREMITIES: Trace bilateral lower extremity edema. LABORATORY DATA: Culture results from seroma drainage is negative to date. ASSESSMENT AND PLAN 1. Intractable right groin pain, seroma. The patient is improved, but the seroma is increasing in size again and will need to be drained again. We will discuss with Dr. Haney further plans as far as putting in a drain and leaving it or just draining the fluid that is there. We will continue [facility] pain management at this time. Continue with inpatient status. 2. Hematuria, improved. We will continue with antibiotics. 3. Urinary retention/BPH. Appreciate Dr. Rico's consultation. We will continue with current pr dications and encourage patient to urinate every hour while awake. 4. Orthostatic hypotension, stable. Continue with blood pressure monitoring, but hold off on any m eds. 5. Hypothyroidism, stable. Continue with patient's medications. Dictated By: KATERINA FAUSTIN MD, SR/JANETTE Conf#: [id number] DID#: [id number]
--- NOTE | 2017-04-19 08:53 | PN ---
DATE: 04/19/2017 SUBJECTIVE: The patient is complaining of increasing pain and swelling in the right groin again, ot herwise the patient is feeling all right, no more hematuria. OBJECTIVE: VITAL SIGNS: Temperature 97.8, pulse 69, respirations 18, blood pressure 142/60, oxygen saturation 96% on room air. GENERAL: Well-developed, well-nourished male in no acute distress, sitting up in bed. LUNGS: Clear to auscultation bilaterally. HEART: Regular rate and rhythm. ABDOMEN: Soft, nontender. Right groin area with approximately 6 x 8 cm swelling right inguinal reg ion consistent with seroma, and tender to palpation, mild scrotal edema. EXTREMITIES: Trace bilateral lower extremity edema. LABORATORY DATA: Culture results from seroma drainage is negative to date. ASSESSMENT AND PLAN 1. Intractable right groin pain, seroma. The patient is improved, but the seroma is increasing in size again and will need to be drained again. We will discuss with Dr. Haney further plans as far as putting in a drain and leaving it or just draining the fluid that is there. We will continue [facility] pain management at this time. Continue with inpatient status. 2. Hematuria, improved. We will continue with antibiotics. 3. Urinary retention/BPH. Appreciate Dr. Rico's consultation. We will continue with current sd dications and encourage patient to urinate every hour while awake. 4. Orthostatic hypotension, stable. Continue with blood pressure monitoring, but hold off on any m eds. 5. Hypothyroidism, stable. Continue with patient's medications. Dictated By: KATERINA FAUSTIN MD, SR/JANETTE Conf#: [id number] DID#: [id number]
[2017-04-19 12:11] VITALS: BP 157/69; RESP 20
[2017-04-19] MEDS: MAGNESIUM HYDROXIDE 30ML CUP PO PRN (13:26)
--- NOTE | 2017-04-19 14:17 | PN ---
Date/Time of Note Date/Time of Note DATE: 04/19/17 TIME: 14:12 Assessment/Plan Lines/Catheters IV Catheter Type (from Nrs): Peripheral IV Fernandez in Place (from Nrs): No Assessment/Plan Chief Complaint/Hosp Course 1. Large low density fluid collections are identified in the surgical bed, likely seroma: s/p IR drain; cultures: no growth; right groin lump increasing -pain management to right groin -repeat imaging 2. Right groin pain 2/2 #1-improved -pain management -ice pack to area -as above 3. Scrotal edema: improved -elevate scrotum 4. Hypothyroid -medical management 5. BPH: -sontinue medical management -encourage frequent bladder emptying 6. Constipation -bowel regimen optimization 7. Hematuria: drops of blood after urination; resolved -Urology consult appreciated Thank you. Patient seen and examined in collaboration with Dr. Jose Juan Haney. Problems: Subjective 24 Hr Interval Summary Right groin pain and palpable mass increasing in size. No change in ability to urinate. No hematuria. No fevers, chills, sob, congested cough, n/v/d/dysuria, cp, palpitations. Exam/Review of Systems Vital Signs Vitals Vital Signs Date Time Temp Pulse Resp B/P Pulse Ox O2 Delivery O2 Flow Rate FiO2 04/19/17 12:11 98.4 73 20 157/69 98 04/16/17 17:42 Room Air Intake and Output 04/18/17 04/18/17 04/19/17 15:00 23:00 07:00 Intake Total 660 ml 1000 ml 350 ml Output Total 925 ml Balance 660 ml 1000 ml -575 ml Exam Free Text/Dictation Constitutional: alert, oriented Psych: anxiety Head: atraumatic, normocephalic Eyes: nl lids, nl sclera ENMT: mucosa pink and moist, nl nasal mucosa & septum Neck: non-tender, supple Respiratory: clear to auscultation, normal air movement Cardiovascular: nl pulses, regular rate and rhythm Gastrointestinal: non-tender, other (palpable mass right groin increasing in size, softer, tenderness), soft, tenderness (right pelvis) Genitourinary - Male: No nl scrotum (scrotal edema improved) Musculoskeletal: nl extremities to inspection Extremities: normal pulses, No edema Neurological: nl mental status, nl speech, nl strength Skin: nl turgor, No rash or lesions Results Result Diagram: 04/17/17 0516 04/17/17 0516 PRINCESS POP NP Apr 19, 2017 14:17
--- NOTE | 2017-04-19 18:32 | RADRPT ---
PROCEDURE: CT abdomen and pelvis without contrast. CLINICAL INDICATION: Palpable right inguinal mass with increasing pain TECHNIQUE: CT scan of the abdomen and pelvis without contrast was performed. Sagittal and coronal reformatted images were obtained from the axial source images. One or more of the following dose re duction techniques were used: Automated exposure control, adjustment of the mA and/or kV according t o patient size, use of iterative reconstruction technique. CTDI = 18.32 mGy; DLP = 1307.25 mGy-cm COMPARISON: CT 04/16/2017 FINDINGS: Visualized lower thorax: Development of bibasilar subsegmental atelectasis has occurred. There is n o evidence of lower lobe infiltrate. There is no evidence for pleural effusion. Liver, gallbladder, pancreas and spleen: The liver is normal and size, contour and attenuation. Th ere is no evidence for a liver mass or ductal dilatation. The gallbladder is unremarkable. No comm on bile duct abnormality is demonstrated. The pancreas is unremarkable. The spleen is normal in si ze. Adrenal glands and genitourinary system: The adrenal glands are normal bilaterally. In the lower po le of the right kidney is a small 1 mm calculus without hydronephrosis. The left kidney is unremarka ble. Incidental small cyst of the right renal cortex is present and requires no additional imaging f ollow-up The ureters are unremarkable. No intrinsic urinary bladder abnormality is demonstrated. Th ere is a persistent fluid collection causing extrinsic mass effect upon the anterior right urinary b ladder, the ovoid water attenuating space occupying lesion within the anterior right pelvis now sweta mated at 9 x 4.9 x 6.3 cm in transverse, AP and cranial caudal dimensions respectively. There is an isthmus in the right inguinal canal, the dominant intrapelvic lesion connecting to either within the right anterior thigh, the inguinal region, the second component to the collection approximately 3.9 x 3.2 x 7.4 cm in AP, transverse and cranial caudal dimensions respectively. Right inguinal clips are again seen the prostate gland is top normal in size with prostate calcifications again identifi ed. A small amount of fluid within the left inguinal canal is similar to the prior study. Metallic d ensities in the region of the scrotum are compatible with prior vasectomy Gastrointestinal system: The stomach is normal in caliber with no abnormality of significance. The small bowel is normal in caliber with no ileus, obstruction or wall thickening. The appendix and s urrounding fat are within the limits of normal. Diverticular disease of the distal colon is present . There is no evidence for colitis or diverticulitis. Peritoneum, retroperitoneum, lymph nodes and vessels: Infrarenal abdominal aortic aneurysm is unchan ged estimated at 3.3 x 3.1 cm. There is no evidence of retroperitoneal hematoma. There is moderate to severe aortic and iliac system atherosclerotic calcification. The inferior vena cava is unremark able. There is no evidence for adenopathy or mass. There is no ascites. No pneumoperitoneum is pre sent Osseous structures and musculoskeletal findings: There is no fracture, lytic or blastic lesion. Mod erate degenerative spondylosis of the thoracolumbar spine is present. No muscular abnormality or sof t tissue pathology is present. RPTAT:HJJR IMPRESSION: 1. Persistent bilobed collection within the right lower pelvis extending into the right inguinal reg ion 3 narrowed right inguinal canal isthmus, the finding likely a postoperative seroma rather than a n abscess, the dominant component within the pelvis estimated at 9 cm in greatest transverse dimensi on. 2. Tiny nonobstructing right lower pole renal calculus is again noted. 3. Stable 3.3 cm infrarenal abdominal aortic aneurysm and atherosclerotic calcification. Physician Celso Date Time Electronically viewed and signed by Physician Celso on 04/19/2017 18:31 JR/
[2017-04-19] MEDS: TAMSULOSIN (SR) 0.4 MG CAP PO SCH (19:10)
--- NOTE | 2017-04-19 19:11 | PN ---
Date/Time of Note Date/Time of Note DATE: 04/19/17 TIME: 19:03 Assessment/Plan VTE Prophylaxis VTE Prophylaxis Intervention: ambulation, SCD's Lines/Catheters IV Catheter Type (from Nrs): Peripheral IV Urinary Cath still in place: Yes Reason Cath still needed: other (indicate) (High postvoid residual) Assessment/Plan Chief Complaint/Hosp Course 81-year-old male underwent laparoscopic bilateral inguinal hernia repair on March 30, 2017, presented to the hospital was right inguinal pain. CT scan of the abdomen and pelvis showed seroma which was aspirated 2 days ago. The patient reported noticing blood on his underwear since the hernia repair. He just voided before I saw him, bladder scan showed postvoid residual of over [address] scan today showed reaccumulation of the seroma and the question whether that is collection of urine leaking out of the bladder especially that he does not empty his bladder completely. I discussed with him inserting a Fernandez catheter to empty the bladder so that will not be any urine to extravasate and leak and then in the morning probably will have the radiologist try to aspirate and drain the collection of fluid with the bladder deflated so there will be less risk of the needle hitting the bladder. So he let me do that and I inserted a 16 Wolof Fernandez catheter and that drained over 350 mL Problems: Subjective 24 Hr Interval Summary Constitutional: other (Patient complains of pain in the right inguinal area and right hip area) Eyes: no complaints ENT: no complaints Respiratory: no complaints Cardiovascular: no complaints Gastrointestinal: pain (Right lower quadrant and the right inguinal area) Genitourinary: other (He is voiding often) Musculoskeletal: no complaints Neurologic: no complaints Exam/Review of Systems Vital Signs Vitals Vital Signs Date Time Temp Pulse Resp B/P Pulse Ox O2 Delivery O2 Flow Rate FiO2 04/19/17 12:11 98.4 73 20 157/69 98 04/16/17 17:42 Room Air Intake and Output 04/18/17 04/18/17 04/19/17 15:00 23:00 07:00 Intake Total 660 ml 1000 ml 350 ml Output Total 925 ml Balance 660 ml 1000 ml -575 ml Exam Constitutional: alert, oriented, other (Complains of pain in the right inguinal area right hip area) Psych: no complaints Head: atraumatic Eyes: nl conjunctiva ENMT: nl external ears & nose Neck: supple Respiratory: normal air movement Cardiovascular: No edema Gastrointestinal: tender (Right lower quadrant in the right inguinal area) Genitourinary - Male: other (He just voided and I had him go to the bathroom and urinate a second time then I did do bladder scan on him and he chose over 300-380 mL postvoid residual) Extremities: No calf tenderness Results Result Diagram: 04/17/1751504/17/17515 Imaging Free Text/Dictation CT scan of the abdomen and pelvis done this evenin. Persistent bilobed collection within the right lower pelvis extending into the right inguinal region 3 narrowed right inguinal canal isthmus, the finding likely a postoperative seroma rather than an abscess, the dominant component within the pelvis estimated at 9 cm in greatest transverse dimension. 2. Tiny nonobstructing right lower pole renal calculus is again noted. 3. Stable 3.3 cm infrarenal abdominal aortic aneurysm and atherosclerotic calcification. Medications Medications Current Medications Docusate Sodium (Colace) 100 mg BID PO Last administered on 04/19/17 08:36; Admin Dose 100 MG; Start 04/16/17 at 21:00 Bethanechol Chloride (Urecholine) 25 mg TID PO Last administered on 04/19/17 13:26; Admin Dose 25 MG; Start 04/16/17 at 21:00 Finasteride (Proscar) 5 mg DAILY PO Last administered on 04/19/17 08:36; Admin Dose 5 MG; Start 04/17/17 at 09:00 Valacyclovir HCl (Valtrex) 1,000 mg BID PO Last administered on 04/19/17 08: 37; Admin Dose 1,000 MG; Start 04/16/17 at 21:00 Polyethylene Glycol (Miralax) 17 gm BID PO Last administered on 04/19/17 08: 37; Admin Dose 17 GM; Start 04/16/17 at 21:00 Ondansetron HCl (Zofran Inj) 4 mg Q6 PRN IV NAUSEA AND/OR VOMITING; Start at 16:00 Acetaminophen (Tylenol Tab) 650 mg Q6 PRN PO PAIN OR TEMP ABOVE 38C; Start at 16:00 Levothyroxine Sodium (Synthroid) 125 mcg AM PO Last administered on 04/19/17 07:48; Admin Dose 125 MCG; Start 04/17/17 at 09:00 Alprazolam (Xanax) 0.25 mg HS PRN PO INSOMNIA Last administered on 04/16/17 23:37; Admin Dose 0.25 MG; Start 04/16/17 at 19:30 Hydromorphone HCl (Dilaudid) 3 mg Q4H PRN IV PAIN Last administered on 00:50; Admin Dose 3 MG; Start 04/17/17 at 02:17 Ciprofloxacin 250 mg 250 mg BID@06,18 GTB Last administered on 04/19/17 17:04 ; Admin Dose 250 MG; Start 04/17/17 at 18:00; Stop 04/20/17 at 06:01 Sodium Chloride (NS) 1,000 ml @ 80 mls/hr [id number] IV Last administered on 08:45; Admin Dose 80 MLS/HR; Start 04/17/17 at 12:30 Patient Own Medication 2 ea BID PO Last administered on 04/19/17 08:36; Admin Dose 2 EA; Start 04/17/17 at 23:00 Acetaminophen/ Hydrocodone Bitart ([place] (5/325)) 1 tab Q4H PRN PO PAIN LEVEL 4 -6 Last administered on 04/19/17 13:26; Admin Dose 1 TAB; Start 04/18/17 at 16:00 Acetaminophen/ Hydrocodone Bitart ([place] (5/325)) 2 tab Q4H PRN PO PAIN LEVEL 7 -10 Last administered on 04/19/17 17:05; Admin Dose 2 TAB; Start 04/18/17 at 16:00 Magnesium Hydroxide (Milk Of Mag) 30 ml DAILY PRN PO CONSTIPATION Last administered on 04/19/17 13:26; Admin Dose 30 ML; Start 04/18/17 at 16:00 Pantoprazole (Protonix Tab) 40 mg DAILY@06 PO Last administered on 04/19/17 06:22; Admin Dose 40 MG; Start 04/19/17 at 06:00 Hydralazine HCl (Apresoline) 5 mg Q6H PRN IV SBP>180 OR DBP>100; Start at 08:00 DELVIS MANTILLA MD Apr 19, 2017 19:11
[2017-04-19 19:41] VITALS: BP 176/77; RESP 20
--- NOTE | 2017-04-19 20:21 | CONS ---
Date/Time of Note Date/Time of Note DATE: 04/19/17 TIME: 18:38 Assessment/Plan Assessment/Plan Chief Complaint/Hosp Course 1. Right inguinal post-op seroma: s/p IR drain; cultures: no growth; right groin lump increasing -pain management to right groin -recommend multimodality pain control with non-narcotics added as well as Ice and oral narcotics as needed -follow cultures -no evidence of bladder injury, fistula, or infection 2. Right groin pain 2/2 #1-improved -pain management -ice pack to area -as above -avoid additional aspiration as it will re-accumulate and increases risk of mesh infection 3. Scrotal edema: improved -elevate scrotum 4. Hypothyroid -medical management 5. BPH with obstruction: -continue medical management -encourage frequent bladder emptying -landaverde care per urology -appreciate urology input 6. Constipation -bowel regimen optimization -minimize narcotic use 7. Hematuria: drops of blood after urination; resolved -negative UA and clear landaverde drainage -Urology consult appreciated Problems: Cont'd Hospitalization Reason: discussed with Dr. Fritz. Consultation Date/Type/Reason Admit Date/Time Date of Consultation: Apr 19, 2017 Type of Consultation: Surgery Reason for Consultation Inguinal Seroma Hx of Present Illness Patient is 2 weeks s/p Lap CASTRO by Dr. Fritz, with history of significant obstructive BPH, and urinary retention despite being on double therapy. He is followed by [facility] Urologist for this. He presented to hospital with right groin pain, underwent CT scan showing seroma, and underwent IR aspiration. The fluid has somewhat re-accumulated, and patient reports pain in the right groin. He was concerned about possible hematuria. He denies fever, chills, nausea, vomiting. Was seen by urologist, and had landaverde catheter placed today. Otherwise , pain in groin feels similar to pre-op pain. 10 system ROS negative except as per HPI. Constitutional: other (Patient complains of pain in the right inguinal area and right hip area) Eyes: no complaints ENT: no complaints Respiratory: no complaints Cardiovascular: no complaints Gastrointestinal: pain (Right lower quadrant and the right inguinal area) Genitourinary: other (He is voiding often) Musculoskeletal: no complaints Skin: No pruritis Neurologic: no complaints Endocrine: No polydypsia, No polyuria Psychological: no complaints Immunologic: No pruritis, No urticaria Past Medical History Medical History: hypothyroid, other (History of constipation, high postvoid residual) Past Surgical History Past Surgical Hx: other (Transurethral microwave treatment of the prostate, laparoscopic bilateral inguinal hernia repair, cystoscopy by his urologist) Social History Smoking Status: Current every day smoker (Smokes 2 cigars a day, was smoking 1 pack of cigarettes a day but quit 20 years ago) Exam/Review of Systems Vital Signs Vitals Vital Signs Date Time Temp Pulse Resp B/P Pulse Ox O2 Delivery O2 Flow Rate FiO2 04/19/17 19:41 98.7 65 20 176/77 96 04/16/17 17:42 Room Air Intake and Output 04/18/17 04/18/17 04/19/17 15:00 23:00 07:00 Intake Total 660 ml 1000 ml 350 ml Output Total 925 ml Balance 660 ml 1000 ml -575 ml Exam Constitutional: alert, oriented, No distress Psych: anxiety, No confusion Head: atraumatic, normocephalic Eyes: nl lids, No icteric Neck: No jvd Respiratory: normal air movement, No congested cough, No intercostal retraction, No labored breathing Gastrointestinal: non-tender, soft, No distended, No rebound or guarding Genitourinary - Male: other (edematous penus with landaverde catheter, right inguinal canal firmness without erythema) Results Result Diagram: 04/17/1751504/17/17515 Imaging Free Text/Dictation Ct showed seroma IR drainage aspirated clear fluid Cultures negative thus far Sterile seroma without WBC Medications Medications Current Medications Docusate Sodium (Colace) 100 mg BID PO Last administered on 04/19/17 08:36; Admin Dose 100 MG; Start 04/16/17 at 21:00 Bethanechol Chloride (Urecholine) 25 mg TID PO Last administered on 04/19/17 13:26; Admin Dose 25 MG; Start 04/16/17 at 21:00 Finasteride (Proscar) 5 mg DAILY PO Last administered on 04/19/17 08:36; Admin Dose 5 MG; Start 04/17/17 at 09:00 Valacyclovir HCl (Valtrex) 1,000 mg BID PO Last administered on 04/19/17 08: 37; Admin Dose 1,000 MG; Start 04/16/17 at 21:00 Polyethylene Glycol (Miralax) 17 gm BID PO Last administered on 04/19/17 08: 37; Admin Dose 17 GM; Start 04/16/17 at 21:00 Ondansetron HCl (Zofran Inj) 4 mg Q6 PRN IV NAUSEA AND/OR VOMITING; Start at 16:00 Acetaminophen (Tylenol Tab) 650 mg Q6 PRN PO PAIN OR TEMP ABOVE 38C; Start at 16:00 Levothyroxine Sodium (Synthroid) 125 mcg AM PO Last administered on 04/19/17 07:48; Admin Dose 125 MCG; Start 04/17/17 at 09:00 Alprazolam (Xanax) 0.25 mg HS PRN PO INSOMNIA Last administered on 04/16/17 23:37; Admin Dose 0.25 MG; Start 04/16/17 at 19:30 Hydromorphone HCl (Dilaudid) 3 mg Q4H PRN IV PAIN Last administered on 00:50; Admin Dose 3 MG; Start 04/17/17 at 02:17 Ciprofloxacin 250 mg 250 mg BID@06,18 GTB Last administered on 04/19/17 17:04 ; Admin Dose 250 MG; Start 04/17/17 at 18:00; Stop 04/20/17 at 06:01 Sodium Chloride (NS) 1,000 ml @ 80 mls/hr [id number] IV Last administered on 08:45; Admin Dose 80 MLS/HR; Start 04/17/17 at 12:30 Patient Own Medication 2 ea BID PO Last administered on 04/19/17 08:36; Admin Dose 2 EA; Start 04/17/17 at 23:00 Acetaminophen/ Hydrocodone Bitart ([place] (5/325)) 1 tab Q4H PRN PO PAIN LEVEL 4 -6 Last administered on 04/19/17 13:26; Admin Dose 1 TAB; Start 04/18/17 at 16:00 Acetaminophen/ Hydrocodone Bitart ([place] (5/325)) 2 tab Q4H PRN PO PAIN LEVEL 7 -10 Last administered on 04/19/17 17:05; Admin Dose 2 TAB; Start 04/18/17 at 16:00 Magnesium Hydroxide (Milk Of Mag) 30 ml DAILY PRN PO CONSTIPATION Last administered on 04/19/17 13:26; Admin Dose 30 ML; Start 04/18/17 at 16:00 Pantoprazole (Protonix Tab) 40 mg DAILY@06 PO Last administered on 04/19/17 06:22; Admin Dose 40 MG; Start 04/19/17 at 06:00 Hydralazine HCl (Apresoline) 5 mg Q6H PRN IV SBP>180 OR DBP>100; Start at 08:00 Copies To: CC: TAYLOR FRITZ MD, NOJAN DO Apr 19, 2017 20:19
[2017-04-20 01:53] VITALS: BP 150/65; RESP 20
[2017-04-20] MEDS: SOD CHLORIDE 0.9% 1,000 ML IV SCH ×3 (03:00→23:34)
[2017-04-20] MEDS: CIPROFLOXACIN 250 MG TAB GTB SCH (06:03)
[2017-04-20] MEDS: PANTOPRAZOLE (EC) 40 MG TAB PO SCH (06:03)
[2017-04-20 07:55] VITALS: BP 171/70; RESP 20
--- NOTE | 2017-04-20 08:24 | PN ---
Date/Time of Note Date/Time of Note DATE: 04/20/17 TIME: 08:18 Assessment/Plan VTE Prophylaxis VTE Prophylaxis Intervention: ambulation Lines/Catheters IV [facility] (from [facility] Peripheral IV Urinary Cath still in place: Yes Reason Cath still needed: urinary retention (High postvoid residual and possible leak from the bladder) Assessment/Plan Chief Complaint/Hosp Course 81-year-old male underwent laparoscopic bilateral inguinal hernia repair on March 30, 2017, presented to the hospital was right inguinal pain. CT scan of the abdomen and pelvis showed seroma which was aspirated 3 days ago. The patient reported noticing blood on his underwear since the hernia repair. The seroma did recur after the aspiration and the patient has a high postvoid residual over 300 mL which could facilitate the leak out of the bladder into the seroma should there be any bladder wall small leak. Therefore I did insert the Fernandez catheter for him last night to keep the bladder empty and discussed with the radiologist doing a CT-guided aspiration of the right inguinal area fluid collection followed by a CT cystogram to see if there is any leak or not. I discussed that with the patient and he is willing to go ahead with it Problems: Subjective 24 Hr Interval Summary Constitutional: no complaints Eyes: no complaints Respiratory: no complaints Cardiovascular: no complaints Gastrointestinal: no complaints Genitourinary: other (He must have had bladder spasm last night. The Fernandez catheter must have been kinked and triggered the sensation that he has to urinate) Musculoskeletal: no complaints Neurologic: no complaints Endocrine: no complaints Exam/Review of Systems Vital Signs Vitals Vital Signs Date Time Temp Pulse Resp B/P Pulse Ox O2 Delivery O2 Flow Rate FiO2 04/20/17 07:55 97.4 76 20 171/70 97 04/16/17 17:42 Room Air Intake and Output 04/19/17 04/19/17 04/20/17 15:00 23:00 07:00 Intake Total 2550 ml 1660 ml Output Total 1950 ml 1550 ml Balance 600 ml 110 ml Exam Constitutional: alert, oriented, other (States his pain is less today than yesterday) Psych: no complaints Head: atraumatic Eyes: nl conjunctiva ENMT: nl external ears & nose Neck: supple Respiratory: normal air movement Cardiovascular: No edema Gastrointestinal: soft Genitourinary - Male: other (Fernandez catheter draining clear urine, it was kinked and had to be readjusted) Extremities: No calf tenderness Skin: nl turgor Results Result Diagram: 04/20/17 0539 04/20/17 0539 Results 24 hrs Laboratory Tests Test 04/20/17 05:39 White Blood Count 5.7 # Red Blood Count 3.93 L Hemoglobin 12.9 L Hematocrit 38.2 L Mean Corpuscular Volume 97.2 Mean Corpuscular Hemoglobin 32.8 Mean Corpuscular Hemoglobin Concent 33.8 Red Cell Distribution Width 12.1 Platelet Count 190 Mean Platelet Volume 10.7 H Neutrophils % 63.9 Lymphocytes % 20.9 Monocytes % 8.7 Eosinophils % 5.6 Basophils % 0.7 Nucleated Red Blood Cells % 0.0 Neutrophils # 3.7 Lymphocytes # 1.2 Monocytes # 0.5 Eosinophils # 0.3 Basophils # 0.0 Nucleated Red Blood Cells # 0.0 Sodium Level 141 Potassium Level 3.8 Chloride Level 110 Carbon Dioxide Level 26 Anion Gap 9 Blood Urea Nitrogen 10 Creatinine 0.79 Glucose Level 84 Calcium Level 8.3 L Imaging Free Text/Dictation I did review the CT scan was Dr. Mcclendon. There could be a possibility of bladder leak on the right side into the seroma. I discussed with Dr. Mcclendon doing a CT- guided drainage of the collection of fluid in the right inguinal area followed by a CT cystogram. Dr. Mcclendon will do it this morning Medications Medications Current Medications Docusate Sodium (Colace) 100 mg BID PO Last administered on 04/19/17 20:24; Admin Dose 100 MG; Start 04/16/17 at 21:00 Bethanechol Chloride (Urecholine) 25 mg TID PO Last administered on 04/19/17 20:24; Admin Dose 25 MG; Start 04/16/17 at 21:00 Finasteride (Proscar) 5 mg DAILY PO Last administered on 04/19/17 08:36; Admin Dose 5 MG; Start 04/17/17 at 09:00 Valacyclovir HCl (Valtrex) 1,000 mg BID PO Last administered on 04/19/17 20: 24; Admin Dose 1,000 MG; Start 04/16/17 at 21:00 Polyethylene Glycol (Miralax) 17 gm BID PO Last administered on 04/19/17 20: 24; Admin Dose 17 GM; Start 04/16/17 at 21:00 Ondansetron HCl (Zofran Inj) 4 mg Q6 PRN IV NAUSEA AND/OR VOMITING; Start at 16:00 Acetaminophen (Tylenol Tab) 650 mg Q6 PRN PO PAIN OR TEMP ABOVE 38C; Start at 16:00 Levothyroxine Sodium (Synthroid) 125 mcg AM PO Last administered on 04/19/17 07:48; Admin Dose 125 MCG; Start 04/17/17 at 09:00 Alprazolam (Xanax) 0.25 mg HS PRN PO INSOMNIA Last administered on 04/16/17 23:37; Admin Dose 0.25 MG; Start 04/16/17 at 19:30 Hydromorphone HCl 3 mg 3 mg Q4H PRN IV PAIN Last administered on 04/19/17 00: 50; Admin Dose 3 MG; Start 04/17/17 at 02:17 Sodium Chloride (NS) 1,000 ml @ 80 mls/hr [id number] IV Last administered on 22:50; Admin Dose 80 MLS/HR; Start 04/17/17 at 12:30 Patient Own Medication 2 ea BID PO Last administered on 04/19/17 20:25; Admin Dose 2 EA; Start 04/17/17 at 23:00 Acetaminophen/ Hydrocodone Bitart ([place] (5/325)) 1 tab Q4H PRN PO PAIN LEVEL 4 -6 Last administered on 04/19/17 22:00; Admin Dose 1 TAB; Start 04/18/17 at 16:00 Acetaminophen/ Hydrocodone Bitart ([place] (5/325)) 2 tab Q4H PRN PO PAIN LEVEL 7 -10 Last administered on 04/19/17 17:05; Admin Dose 2 TAB; Start 04/18/17 at 16:00 Magnesium Hydroxide (Milk Of Mag) 30 ml DAILY PRN PO CONSTIPATION Last administered on 04/19/17 13:26; Admin Dose 30 ML; Start 04/18/17 at 16:00 Pantoprazole (Protonix Tab) 40 mg DAILY@06 PO Last administered on 04/20/17 06:03; Admin Dose 40 MG; Start 04/19/17 at 06:00 Hydralazine HCl (Apresoline) 5 mg Q6H PRN IV SBP>180 OR DBP>100; Start at 08:00 DELVIS MANTILLA MD Apr 20, 2017 08:24
[2017-04-20] MEDS ORDERED: MAGNESIUM HYDROXIDE 30ML CUP PO PRN (09:00)
--- NOTE | 2017-04-20 09:22 | PN ---
DATE: 04/20/2017 SUBJECTIVE: The patient is feeling slightly better with less pain in the right groin. OBJECTIVE: VITAL SIGNS: Temperature 97.4, pulse 76, respirations 20, blood pressure 171/70, oxygen saturation 97% on room air. GENERAL: Well-developed male in no acute distress, lying in bed. LUNGS: Clear to auscultation bilaterally. HEART: Regular rate and rhythm. ABDOMEN: Soft, nondistended, normoactive bowel sounds. Right groin with palpable seroma/mass with decreased induration and decreased tenderness as compared to yesterday. LABORATORY DATA: Sodium 141, potassium 3.8, chloride 110, bicarbonate 26, BUN 10, creatinine 0.79, calcium is 8.3, glucose 84, hemoglobin 12.9, hematocrit 38.2, white blood cell count 5.7, platelets 190. Abdominal pelvic CT scan done 04/19/2017 shows approximately 9 cm fluid collection, most likel y postoperative seroma that is bilobed collection with a 3.3 cm infrarenal abdominal aortic aneurysm and a tiny nonobstructing right lower pole renal calculus. ASSESSMENT AND PLAN: 1. Intractable pain, seroma, status post inguinal hernia repair. The patient remains stable and fl uid collection seems to be slightly better than it was yesterday. The patient only had a Fernandez cath eter placed as there may be a possible connection between the two. We will continue with observatio n at this point and not put another drain in place, depending on its behavior over the next 24 hours . We will continue with pain control. 2. Urinary retention. The patient now with catheter in place and we will see if this helps decompr ess the fluid collection in the right groin if there indeed a connection between the two. 3. Hypertension/orthostatic hypotension, stable. Continue with p.r.n. medications. 4. Hypothyroidism, stable. Continue with patient's medications. 5. Constipation. We will increase the milk of magnesia to t.i.d. as needed. Dictated By: KATERINA FAUSTIN MD, SR/NTS Conf#: [id number] DID#: [id number]
[2017-04-20] MEDS: DOCUSATE SODIUM 100 MG CAP PO SCH ×2 (09:23→21:44)
[2017-04-20] MEDS: LEVOTHYROXINE 125 MCG TAB PO SCH (09:23)
[2017-04-20] MEDS: VALACYCLOVIR 500 MG TAB PO SCH ×2 (09:24→20:45)
[2017-04-20] MEDS: FINASTERIDE 5 MG TAB PO SCH (09:26)
[2017-04-20] MEDS: CITRUCEL 500 MG PO SCH ×2 (09:26→21:44)
[2017-04-20] MEDS: POLYETHYLENE GLYCOL 17 GM PACKET PO SCH ×2 (09:27→21:46)
[2017-04-20] MEDS: BETHANECHOL 25 MG TAB PO SCH ×3 (09:27→20:45)
[2017-04-20 13:45] VITALS: BP 162/72; RESP 18
--- NOTE | 2017-04-20 14:52 | PN ---
Date/Time of Note Date/Time of Note DATE: 04/20/17 TIME: 14:45 Assessment/Plan Lines/Catheters IV Catheter Type (from Nrs): Peripheral IV Landaverde in Place (from Nrs): Yes Assessment/Plan Chief Complaint/Hosp Course 1. Large low density fluid collections are identified in the surgical bed, likely seroma: s/p IR drain; cultures: no growth; right groin lump increasing: CT noted: ?leak from bladder -pain management to right groin -pending ir drain per urology -landaverde 2. Right groin pain 2/2 #1-improved -pain management -ice pack to area as tolerated -as above 3. Scrotal edema: improved -elevate scrotum 4. Hypothyroid -medical management 5. BPH: -sontinue medical management -encourage frequent bladder emptying 6. Constipation -bowel regimen optimization 7. Hematuria: drops of blood after urination; resolved -Urology consult appreciated Thank you. Patient seen and examined in collaboration with Dr. Jose Juan Haney. Problems: Subjective 24 Hr Interval Summary Pelvic/groin pain/discomfort continues. CT noted. Pending ir drain of fluid today. ?Leak from bladder distention. No hematuria. No fevers, chills, sob, congested cough, n/v/d. Exam/Review of Systems Vital Signs Vitals Vital Signs Date Time Temp Pulse Resp B/P Pulse Ox O2 Delivery O2 Flow Rate FiO2 04/20/17 13:45 98.3 69 18 162/72 97 04/16/17 17:42 Room Air Intake and Output 04/19/17 04/19/17 04/20/17 15:00 23:00 07:00 Intake Total 2550 ml 1660 ml Output Total 1950 ml 1550 ml Balance 600 ml 110 ml Exam Free Text/Dictation Constitutional: alert, oriented Psych: anxiety Head: atraumatic, normocephalic Eyes: nl lids, nl sclera ENMT: mucosa pink and moist, nl nasal mucosa & septum Neck: non-tender, supple Respiratory: clear to auscultation, normal air movement Cardiovascular: nl pulses, regular rate and rhythm Gastrointestinal: non-tender, other (palpable mass right groin increasing in size, tenderness), soft, tenderness (right pelvis) Genitourinary - Male: No nl scrotum (scrotal edema improved) Musculoskeletal: nl extremities to inspection Extremities: normal pulses, No edema Neurological: nl mental status, nl speech, nl strength Skin: nl turgor, No rash or lesions Results Result Diagram: 04/20/17 0539 04/20/17 0539 PRINCESS POP NP Apr 20, 2017 14:52
[2017-04-20] MEDS: TAMSULOSIN (SR) 0.4 MG CAP PO SCH (18:16)
--- NOTE | 2017-04-20 19:10 | PN ---
Date/Time of Note Date/Time of Note DATE: 04/20/17 TIME: 19:06 Assessment/Plan VTE Prophylaxis VTE Prophylaxis Intervention: SCD's Lines/Catheters IV [facility] Type ([facility]): Peripheral IV Urinary Cath still in place: Yes Reason Cath still needed: other (indicate) (Possible leak out of the bladder) Assessment/Plan Chief Complaint/Hosp Course 81-year-old male underwent laparoscopic bilateral inguinal hernia repair on March 30, 2017, presented to the hospital was right inguinal pain. CT scan of the abdomen and pelvis showed seroma which was aspirated 3 days ago. The patient reported noticing blood on his underwear since the hernia repair. The seroma did recur after the aspiration and the patient has a high postvoid residual over 300 mL which could facilitate the leak out of the bladder into the seroma should there be any bladder wall small leak. Therefore I did insert the Fernandez catheter for him last night to keep the bladder empty and discussed with the radiologist doing a CT-guided aspiration of the right inguinal area fluid collection followed by a CT cystogram to see if there is any leak or not. I discussed that with the patient and he is willing to go ahead with it Aspiration was not done today the radiologist was not able to do it because of scheduling problems he will do it the first thing tomorrow morning Problems: Subjective 24 Hr Interval Summary Constitutional: other Eyes: no complaints ENT: no complaints Respiratory: no complaints Cardiovascular: No chest pain Gastrointestinal: passing stool Genitourinary: other (Fernandez catheter was kinked earlier and that is why he did have bladder spasms), No bleeding Skin: no complaints Endocrine: no complaints Exam/Review of Systems Vital Signs Vitals Vital Signs Date Time Temp Pulse Resp B/P Pulse Ox O2 Delivery O2 Flow Rate FiO2 04/20/17 13:45 98.3 69 18 162/72 97 04/16/17 17:42 Room Air Intake and Output 04/19/17 04/19/17 04/20/17 15:00 23:00 07:00 Intake Total 2550 ml 1660 ml Output Total 1950 ml 1550 ml Balance 600 ml 110 ml Exam Constitutional: alert, oriented Psych: no complaints Head: atraumatic Eyes: nl conjunctiva ENMT: nl external ears & nose Neck: supple Respiratory: normal air movement Cardiovascular: No edema Gastrointestinal: soft Genitourinary - Male: other (Pain in the right inguinal area is less, Fernandez catheter is draining clear urine.) Extremities: No calf tenderness Results Result Diagram: 04/20/17 0539 04/20/17 0539 Results 24 hrs Laboratory Tests Test 04/20/17 05:39 White Blood Count 5.7 # Red Blood Count 3.93 L Hemoglobin 12.9 L Hematocrit 38.2 L Mean Corpuscular Volume 97.2 Mean Corpuscular Hemoglobin 32.8 Mean Corpuscular Hemoglobin Concent 33.8 Red Cell Distribution Width 12.1 Platelet Count 190 Mean Platelet Volume 10.7 H Neutrophils % 63.9 Lymphocytes % 20.9 Monocytes % 8.7 Eosinophils % 5.6 Basophils % 0.7 Nucleated Red Blood Cells % 0.0 Neutrophils # 3.7 Lymphocytes # 1.2 Monocytes # 0.5 Eosinophils # 0.3 Basophils # 0.0 Nucleated Red Blood Cells # 0.0 Sodium Level 141 Potassium Level 3.8 Chloride Level 110 Carbon Dioxide Level 26 Anion Gap 9 Blood Urea Nitrogen 10 Creatinine 0.79 Glucose Level 84 Calcium Level 8.3 L Medications Medications Current Medications Docusate Sodium (Colace) 100 mg BID PO Last administered on 04/20/17 09:23; Admin Dose 100 MG; Start 04/16/17 at 21:00 Bethanechol Chloride (Urecholine) 25 mg TID PO Last administered on 04/20/17 15:09; Admin Dose 25 MG; Start 04/16/17 at 21:00 Finasteride (Proscar) 5 mg DAILY PO Last administered on 04/20/17 09:26; Admin Dose 5 MG; Start 04/17/17 at 09:00 Valacyclovir HCl (Valtrex) 1,000 mg BID PO Last administered on 04/20/17 09: 24; Admin Dose 1,000 MG; Start 04/16/17 at 21:00 Polyethylene Glycol (Miralax) 17 gm BID PO Last administered on 04/20/17 09: 27; Admin Dose 17 GM; Start 04/16/17 at 21:00 Ondansetron HCl (Zofran Inj) 4 mg Q6 PRN IV NAUSEA AND/OR VOMITING; Start at 16:00 Acetaminophen (Tylenol Tab) 650 mg Q6 PRN PO PAIN OR TEMP ABOVE 38C; Start at 16:00 Alprazolam (Xanax) 0.25 mg HS PRN PO INSOMNIA Last administered on 04/16/17 23:37; Admin Dose 0.25 MG; Start 04/16/17 at 19:30 Hydromorphone HCl 3 mg 3 mg Q4H PRN IV PAIN Last administered on 04/19/17 00: 50; Admin Dose 3 MG; Start 04/17/17 at 02:17 Sodium Chloride (NS) 1,000 ml @ 80 mls/hr [id number] IV Last administered on 11:15; Admin Dose 80 MLS/HR; Start 04/17/17 at 12:30 Patient Own Medication 2 ea BID PO Last administered on 04/20/17 09:26; Admin Dose 2 EA; Start 04/17/17 at 23:00 Acetaminophen/ Hydrocodone Bitart ([place] (5/325)) 1 tab Q4H PRN PO PAIN LEVEL 4 -6 Last administered on 04/19/17 22:00; Admin Dose 1 TAB; Start 04/18/17 at 16:00 Acetaminophen/ Hydrocodone Bitart ([place] (5/325)) 2 tab Q4H PRN PO PAIN LEVEL 7 -10 Last administered on 04/19/17 17:05; Admin Dose 2 TAB; Start 04/18/17 at 16:00 Pantoprazole (Protonix Tab) 40 mg DAILY@06 PO Last administered on 04/20/17 06:03; Admin Dose 40 MG; Start 04/19/17 at 06:00 Hydralazine HCl (Apresoline) 5 mg Q6H PRN IV SBP>180 OR DBP>100; Start at 08:00 Magnesium Hydroxide (Milk Of Mag) 30 ml TID PRN PO CONSTIPATION Last administered on 04/20/17 15:10; Admin Dose 30 ML; Start 04/20/17 at 09:00 Levothyroxine Sodium (Synthroid) 125 mcg DAILY@06 PO ; Start 04/21/17 at 06:00 DELVIS MANTILLA MD Apr 20, 2017 19:10
[2017-04-20 20:05] VITALS: BP 179/74; RESP 19
[2017-04-20] MEDS: HYDROCODONE/APAP (5/325) TAB PO PRN (23:02)
[2017-04-21 02:00] VITALS: BP 132/63; RESP 18
[2017-04-21] MEDS: SOD CHLORIDE 0.9% 1,000 ML IV SCH ×3 (04:00→20:50)
[2017-04-21] MEDS: PANTOPRAZOLE (EC) 40 MG TAB PO SCH ×2 (05:24→06:38)
[2017-04-21] MEDS: LEVOTHYROXINE 125 MCG TAB PO SCH ×2 (05:24→06:37)
[2017-04-21] MEDS: HYDROCODONE/APAP (5/325) TAB PO PRN ×2 (06:33→23:32)
[2017-04-21 08:00] VITALS: BP 154/73; RESP 19
[2017-04-21] MEDS: HYDROmorphONE 2 MG/ML SYG IV PRN (08:12)
--- NOTE | 2017-04-21 08:24 | PN ---
DATE: 04/21/2017 SUBJECTIVE: The patient is complaining of 10/10 right groin pain, currently has had increased swell ing. OBJECTIVE: VITAL SIGNS: Temperature 98.6, pulse 68, respirations 18, blood pressure 132/63, oxygen saturation 95% on room air. GENERAL: Well-developed, well-nourished male in mild distress secondary to pain. LUNGS: Clear to auscultation bilaterally. HEART: Regular rate and rhythm. ABDOMEN: Normoactive bowel sounds, soft, nondistended. Right inguinal region with moderate to gertrudis re tenderness to palpation with induration, swelling and increased size from yesterday. EXTREMITIES: Trace bilateral lower extremity edema. ASSESSMENT AND PLAN: 1. Seromas/fluid collection, right inguinal region. The patient is worse than he was yesterday wit h increased swelling. The patient is to get drainage today with a CT cystogram to see whether or no t there is a connection between the two. Continue with pain control and await results of today's te sting. 2. Orthostatic hypotension/hypertension remains stable. Continue with p.r.n. medications. 3. Constipation, stable. Continue with medications and diet. 4. Hypothyroidism, stable. Continue with patient's medications. Dictated By: KATERINA FAUSTIN MD SR/JANETTE Conf#: [id number] DID#: [id number]
[2017-04-21] MEDS: POLYETHYLENE GLYCOL 17 GM PACKET PO SCH ×3 (09:00→22:11)
[2017-04-21] MEDS: FINASTERIDE 5 MG TAB PO SCH ×2 (09:00→16:18)
[2017-04-21] MEDS: DOCUSATE SODIUM 100 MG CAP PO SCH ×3 (09:00→22:10)
[2017-04-21] MEDS: BETHANECHOL 25 MG TAB PO SCH ×3 (09:00→20:46)
[2017-04-21] MEDS: VALACYCLOVIR 500 MG TAB PO SCH ×3 (09:00→20:46)
[2017-04-21] MEDS: CITRUCEL 500 MG PO SCH ×3 (09:00→22:11)
[2017-04-21] MEDS ORDERED: IOHEXOL 300MG/ML 30 ML BTL ONE ×2 (09:09→09:19)
[2017-04-21] MEDS ORDERED: LIDOCAINE 1% (MDV) 20 ML INJ ONE ×2 (09:09→09:13)
[2017-04-21] MEDS ORDERED: MIDAZOLAM 1 MG/ML 2 ML INJ ONE (09:14)
[2017-04-21] MEDS ORDERED: FENTAnyl 50 MCG/ML VIAL ONE (09:14)
[2017-04-21 14:42] VITALS: BP 172/81; RESP 20
--- NOTE | 2017-04-21 16:16 | RADRPT ---
PROCEDURE: CT guided pelvic fluid collection aspiration. CT cystogram. CLINICAL INDICATION: Right pelvic fluid collection. TECHNIQUE: Informed consent was obtained. The procedure, risks, benefits, complications and alternatives were explained to the patient or the patient's family. Risks including bleeding and infection were explai ember. The patient or the patient's family understood and was willing to proceed. A procedural pause was performed. The patient's name, date of , and procedure to be performed were verified. One or more of the following dose reduction techniques were used: Automated exposure control, adjustmen t of the mA and/or kV according to patient size, use of iterative reconstruction technique. Using local anesthetic, sterile technique and CT guidance, a 19-gauge Yueh needle was advanced into the fluid collection in the right lower pelvis. CT scan was performed confirming position. Serous fluid was also aspirated confirming position. The needle from the Yueh catheter was removed, leavin g the Yueh catheter in place within the fluid collection. Approximately 270 ml of serous fluid was aspirated. The catheter was removed. A dressing was applied. The patient tolerated procedure well . The CT cystogram was performed with infusion of 214 ml of dilute contrast into the bladder via the F oley catheter. The median CT scan was performed demonstrating no extravasation of contrast. A Fernandez catheter was clamped and a 2-hour delayed CT scan of the pelvis was performed. The bladder was drain ed with the patient performing Valsalva maneuver and additional CT scan of pelvis was also performed . COMPARISON: CT scan of the abdomen and pelvis dated 04/19/2017. FINDINGS: The initial images demonstrate the fluid collection in the right side of the pelvis inferiorly exten ding into the right inguinal region. Subsequent images demonstrate the small drainage catheter withi n the fluid collection. Post aspiration images demonstrate most of the fluid in the collection in th e right lower quadrant of the end removed with minimal fluid remaining in the right inguinal region. The cystogram images demonstrate a Fernandez catheter in the bladder. There is trabeculation of the wall of the bladder posteriorly. There is no extravasation of contrast. The bladder does not appear to c ommunicate with the fluid collection in the right side of the pelvis inferiorly. IMPRESSION: 1. Successful CT guided aspiration of fluid collection and right side of pelvis. 2. CT cystogram demonstrates no communication between the bladder and the fluid collection in the r ight side of the pelvis. There is trabeculation of the wall of the bladder posteriorly. There is no extravasation. RPTAT: QQ .Orlin Mcclendon MD, MD Date Time Electronically viewed and signed by .Orlin Mcclendon MD, MD on 04/21/2017 16:16 .R/
--- NOTE | 2017-04-21 17:03 | RADRPT ---
PROCEDURE: CT guided pelvic fluid collection aspiration. CT cystogram. CLINICAL INDICATION: Right pelvic fluid collection. TECHNIQUE: Informed consent was obtained. The procedure, risks, benefits, complications and alternatives were e xplained to the patient or the patient's family. Risks including bleeding and infection were explain ed. The patient or the patient's family understood and was willing to proceed. A procedural pause wa s performed. The patient's name, date of , and procedure to be performed were verified. One or more of the following dose reduction techniques were used: Automated exposure control, adjustment of the mA and/or kV according to patient size, use of iterative reconstruction technique. Using local anesthetic, sterile technique and CT guidance, a 19-gauge Yueh needle was advanced into the fluid collection in the right lower pelvis. CT scan was performed confirming position. Serous fl uid was also aspirated confirming position. The needle from the Yueh catheter was removed, leaving t he Yueh catheter in place within the fluid collection. Approximately 270 ml of serous fluid was aspi rated. The catheter was removed. A dressing was applied. The patient tolerated procedure well. The CT cystogram was performed with infusion of 214 ml of dilute contrast into the bladder via the F oley catheter. The median CT scan was performed demonstrating no extravasation of contrast. A Fernandez catheter was clamped and a 2-hour delayed CT scan of the pelvis was performed. The bladder was drain ed with the patient performing Valsalva maneuver and additional CT scan of pelvis was also performed . COMPARISON: CT scan of the abdomen and pelvis dated 04/19/2017. FINDINGS: The initial images demonstrate the fluid collection in the right side of the pelvis inferiorly exten ding into the right inguinal region. Subsequent images demonstrate the small drainage catheter withi n the fluid collection. Post aspiration images demonstrate most of the fluid in the collection in th e right lower quadrant of the end removed with minimal fluid remaining in the right inguinal region. The cystogram images demonstrate a Fernandez catheter in the bladder. There is trabeculation of the wall of the bladder posteriorly. There is no extravasation of contrast. The bladder does not appear to c ommunicate with the fluid collection in the right side of the pelvis inferiorly. IMPRESSION: 1. Successful CT guided aspiration of fluid collection and right side of pelvis. 2. CT cystogram demonstrates no communication between the bladder and the fluid collection in the ri ght side of the pelvis. There is trabeculation of the wall of the bladder posteriorly. There is no e xtravasation. RPTAT: QQ .Orlin Mcclendon MD, Date Time Electronically viewed and signed by .Orlin Mcclendon MD, on 04/21/2017 17:02 .R/
[2017-04-21] MEDS: TAMSULOSIN (SR) 0.4 MG CAP PO SCH (18:38)
--- NOTE | 2017-04-21 19:04 | PN ---
Date/Time of Note Date/Time of Note DATE: 04/21/17 TIME: 18:56 Assessment/Plan VTE Prophylaxis VTE Prophylaxis Intervention: ambulation Lines/Catheters IV [facility]from [facility] Peripheral IV Urinary Cath still in place: Yes Reason Cath still needed: other (indicate) (Fernandez catheter will be removed in the morning) Assessment/Plan Chief Complaint/Hosp Course 81-year-old male underwent laparoscopic bilateral inguinal hernia repair on March 30, 2017, presented to the hospital was right inguinal pain. CT scan of the abdomen and pelvis showed seroma which was aspirated. The patient reported noticing blood on his underwear since the hernia repair. The seroma did recur after the aspiration and the patient has a high postvoid residual over 300 mL Fernandez catheter was inserted and kept in. Patient did have a CT cystogram today and there is no leak from the bladder into the seroma. The seroma was aspirated with CT guidance by the radiologist. I did discuss with the patient and his the findings. The plan is to remove the Fernandez catheter tomorrow morning and have him resume his own voiding and double void to help empty his bladder better as he has a high postvoid residual Problems: Subjective 24 Hr Interval Summary Free Text/Dictation Patient states that he is feeling better Constitutional: no complaints Eyes: no complaints Respiratory: no complaints Cardiovascular: No chest pain Gastrointestinal: no complaints Genitourinary: other Musculoskeletal: no complaints Neurologic: no complaints Exam/Review of Systems Vital Signs Vitals Vital Signs Date Time Temp Pulse Resp B/P Pulse Ox O2 Delivery O2 Flow Rate FiO2 04/21/17 14:42 97.9 77 20 172/81 97 Intake and Output 04/20/17 04/20/17 04/21/17 15:00 23:00 07:00 Intake Total 480 ml 1080 ml 2080 ml Output Total 3000 ml 2900 ml Balance 480 ml -1920 ml -820 ml Exam at bedside Constitutional: alert, oriented Psych: no complaints Eyes: nl conjunctiva ENMT: nl external ears & nose Neck: supple Respiratory: normal air movement Cardiovascular: No edema Gastrointestinal: other (Status post aspiration and drainage of the right inguinal area seroma), soft Genitourinary - Male: other (Fernandez catheter draining clear urine.) Extremities: No calf tenderness Skin: nl turgor Results Result Diagram: 04/20/17 0539 04/20/17 0539 Results 24 hrs Laboratory Tests Test 04/21/17 06:30 04/21/17 10:15 Urine Color STRAW Urine Clarity CLEAR Urine pH 8.0 Urine Specific [place] 1.005 Urine Ketones NEGATIVE Urine Nitrite NEGATIVE Urine Bilirubin NEGATIVE Urine Urobilinogen NEGATIVE Urine Leukocyte Esterase NEGATIVE Urine Microscopic RBC 31 H Urine Microscopic WBC 3 Urine Hemoglobin 2+ H Urine Random Creatinine 28.50 57.54 Urine Glucose NEGATIVE Urine Total Protein NEGATIVE Imaging Free Text/Dictation CT cystogram: 1. Successful CT guided aspiration of fluid collection and right side of pelvis. 2. CT cystogram demonstrates no communication between the bladder and the fluid collection in the right side of the pelvis. There is trabeculation of the wall of the bladder posteriorly. There is no extravasation. Medications Medications Current Medications Docusate Sodium (Colace) 100 mg BID PO Last administered on 04/21/17 16:18; Admin Dose 100 MG; Start 04/16/17 at 21:00 Bethanechol Chloride (Urecholine) 25 mg TID PO Last administered on 04/21/17 14:40; Admin Dose 25 MG; Start 04/16/17 at 21:00 Finasteride (Proscar) 5 mg DAILY PO Last administered on 04/21/17 16:18; Admin Dose 5 MG; Start 04/17/17 at 09:00 Valacyclovir HCl (Valtrex) 1,000 mg BID PO Last administered on 04/21/17 15: 46; Admin Dose 1,000 MG; Start 04/16/17 at 21:00 Polyethylene Glycol (Miralax) 17 gm BID PO Last administered on 04/21/17 16: 18; Admin Dose 17 GM; Start 04/16/17 at 21:00 Ondansetron HCl (Zofran Inj) 4 mg Q6 PRN IV NAUSEA AND/OR VOMITING; Start at 16:00 Acetaminophen (Tylenol Tab) 650 mg Q6 PRN PO PAIN OR TEMP ABOVE 38C; Start at 16:00 Alprazolam (Xanax) 0.25 mg HS PRN PO INSOMNIA Last administered on 04/16/17 23:37; Admin Dose 0.25 MG; Start 04/16/17 at 19:30 Hydromorphone HCl 3 mg 3 mg Q4H PRN IV PAIN Last administered on 04/21/17 08: 12; Admin Dose 3 MG; Start 04/17/17 at 02:17 Sodium Chloride (NS) 1,000 ml @ 80 mls/hr [id number] IV Last administered on 23:34; Admin Dose 80 MLS/HR; Start 04/17/17 at 12:30 Patient Own Medication 2 ea BID PO Last administered on 04/21/17 16:19; Admin Dose 2 EA; Start 04/17/17 at 23:00 Acetaminophen/ Hydrocodone Bitart ([place] (5/325)) 1 tab Q4H PRN PO PAIN LEVEL 4 -6 Last administered on 04/21/17 06:33; Admin Dose 1 TAB; Start 04/18/17 at 16:00 Acetaminophen/ Hydrocodone Bitart ([place] (5/325)) 2 tab Q4H PRN PO PAIN LEVEL 7 -10 Last administered on 04/20/17 23:02; Admin Dose 2 TAB; Start 04/18/17 at 16:00 Pantoprazole (Protonix Tab) 40 mg DAILY@06 PO Last administered on 04/21/17 06:38; Admin Dose 40 MG; Start 04/19/17 at 06:00 Hydralazine HCl (Apresoline) 5 mg Q6H PRN IV SBP>180 OR DBP>100; Start at 08:00 Magnesium Hydroxide (Milk Of Mag) 30 ml TID PRN PO CONSTIPATION Last administered on 04/20/17 15:10; Admin Dose 30 ML; Start 04/20/17 at 09:00 Levothyroxine Sodium (Synthroid) 125 mcg DAILY@06 PO Last administered on 04/21 06:37; Admin Dose 125 MCG; Start 04/21/17 at 06:00 DELVIS MANTILLA MD Apr 21, 2017 19:04
[2017-04-21 20:00] VITALS: BP 139/65; RESP 20
[2017-04-22 02:00] VITALS: BP 130/61; RESP 20
[2017-04-22] MEDS: SOD CHLORIDE 0.9% 1,000 ML IV SCH (05:00)
[2017-04-22] MEDS: LEVOTHYROXINE 125 MCG TAB PO SCH (06:16)
[2017-04-22] MEDS: PANTOPRAZOLE (EC) 40 MG TAB PO SCH (06:16)
[2017-04-22] MEDS: DOXYCYCLINE 40 MG PO SCH (07:32)
[2017-04-22] MEDS: DOCUSATE SODIUM 100 MG CAP PO SCH ×2 (08:27→22:18)
[2017-04-22] MEDS: FINASTERIDE 5 MG TAB PO SCH (08:27)
[2017-04-22] MEDS: BETHANECHOL 25 MG TAB PO SCH ×3 (08:27→21:36)
[2017-04-22] MEDS: VALACYCLOVIR 500 MG TAB PO SCH ×2 (08:27→21:35)
[2017-04-22] MEDS: CITRUCEL 500 MG PO SCH ×2 (08:28→22:20)
[2017-04-22] MEDS: POLYETHYLENE GLYCOL 17 GM PACKET PO SCH ×2 (08:28→22:19)
--- NOTE | 2017-04-22 08:51 | PN ---
Date/Time of Note Date/Time of Note DATE: 04/22/17 TIME: 08:47 Assessment/Plan VTE Prophylaxis VTE Prophylaxis Intervention: ambulation Lines/Catheters [facility] Peripheral IV Urinary Cath still in place: No Assessment/Plan Chief Complaint/Hosp Course 81-year-old male underwent laparoscopic bilateral inguinal hernia repair on March 30, 2017, presented to the hospital was right inguinal pain. CT scan of the abdomen and pelvis showed seroma which was aspirated. The patient reported noticing blood on his underwear since the hernia repair. The seroma did recur after the aspiration and the patient has a high postvoid residual over 300 mL Fernandez catheter was inserted and kept in. Patient did have a CT cystogram today and there is no leak from the bladder into the seroma. The seroma was aspirated with CT guidance by the radiologist. The Fernandez catheter was removed this morning and the patient has voided twice. We will monitor his voiding and I encouraged him to urinate often and double urinate Problems: Subjective 24 Hr Interval Summary Constitutional: no complaints Eyes: no complaints ENT: no complaints Respiratory: no complaints Cardiovascular: no complaints Gastrointestinal: other (No pain at the present, patient applying ice bag onto the right inguinal area.) Genitourinary: other (Fernandez catheter was removed this morning and the patient has voided twice) Musculoskeletal: no complaints Skin: no complaints Neurologic: no complaints Psychological: nl mood/affect Exam/Review of Systems Vital Signs Vitals Vital Signs Date Time Temp Pulse Resp B/P Pulse Ox O2 Delivery O2 Flow Rate FiO2 04/22/17 02:00 98.5 75 20 130/61 98 Intake and Output 04/21/17 04/21/17 04/22/17 15:00 23:00 07:00 Intake Total 845 ml 1200 ml 1520 ml Output Total 243 ml 1500 ml 2600 ml Balance 602 ml -300 ml -1080 ml Exam Constitutional: alert, oriented Psych: no complaints Eyes: nl conjunctiva ENMT: nl external ears & nose Neck: non-tender Respiratory: normal air movement Cardiovascular: No edema Gastrointestinal: other (Some puffiness in the right inguinal area), soft Genitourinary - Male: other (Fernandez catheter was removed and he has urinated twice small amount each time) Extremities: No calf tenderness Skin: nl turgor Results Result Diagram: 04/20/17 0539 04/20/17 0539 Results 24 hrs Laboratory Tests Test 04/21/17 10:15 Urine Random Creatinine 57.54 Medications Medications Current Medications Docusate Sodium (Colace) 100 mg BID PO Last administered on 04/22/17 08:27; Admin Dose 100 MG; Start 04/16/17 at 21:00 Bethanechol Chloride (Urecholine) 25 mg TID PO Last administered on 04/22/17 08:27; Admin Dose 25 MG; Start 04/16/17 at 21:00 Finasteride (Proscar) 5 mg DAILY PO Last administered on 04/22/17 08:27; Admin Dose 5 MG; Start 04/17/17 at 09:00 Valacyclovir HCl (Valtrex) 1,000 mg BID PO Last administered on 04/22/17 08: 27; Admin Dose 1,000 MG; Start 04/16/17 at 21:00 Polyethylene Glycol (Miralax) 17 gm BID PO Last administered on 04/22/17 08: 28; Admin Dose 17 GM; Start 04/16/17 at 21:00 Ondansetron HCl (Zofran Inj) 4 mg Q6 PRN IV NAUSEA AND/OR VOMITING; Start at 16:00 Acetaminophen (Tylenol Tab) 650 mg Q6 PRN PO PAIN OR TEMP ABOVE 38C; Start at 16:00 Alprazolam (Xanax) 0.25 mg HS PRN PO INSOMNIA Last administered on 04/16/17 23:37; Admin Dose 0.25 MG; Start 04/16/17 at 19:30 Hydromorphone HCl 3 mg 3 mg Q4H PRN IV PAIN Last administered on 04/21/17 08: 12; Admin Dose 3 MG; Start 04/17/17 at 02:17 Sodium Chloride (NS) 1,000 ml @ 80 mls/hr [id number] IV Last administered on 20:50; Admin Dose 80 MLS/HR; Start 04/17/17 at 12:30 Patient Own Medication 2 ea BID PO Last administered on 04/22/17 08:28; Admin Dose 2 EA; Start 04/17/17 at 23:00 Acetaminophen/ Hydrocodone Bitart ([place] (5/325)) 1 tab Q4H PRN PO PAIN LEVEL 4 -6 Last administered on 04/21/17 06:33; Admin Dose 1 TAB; Start 04/18/17 at 16:00 Acetaminophen/ Hydrocodone Bitart ([place] (5/325)) 2 tab Q4H PRN PO PAIN LEVEL 7 -10 Last administered on 04/21/17 23:32; Admin Dose 2 TAB; Start 04/18/17 at 16:00 Pantoprazole (Protonix Tab) 40 mg DAILY@06 PO Last administered on 04/22/17 06:16; Admin Dose 40 MG; Start 04/19/17 at 06:00 Hydralazine HCl (Apresoline) 5 mg Q6H PRN IV SBP>180 OR DBP>100; Start at 08:00 Magnesium Hydroxide (Milk Of Mag) 30 ml TID PRN PO CONSTIPATION Last administered on 04/20/17 15:10; Admin Dose 30 ML; Start 04/20/17 at 09:00 Levothyroxine Sodium (Synthroid) 125 mcg DAILY@06 PO Last administered on 04/22 06:16; Admin Dose 125 MCG; Start 04/21/17 at 06:00 DELVIS MANTILLA MD Apr 22, 2017 08:51
--- NOTE | 2017-04-22 09:22 | PN ---
DATE: 04/22/2017 SUBJECTIVE: The patient is feeling better, very little pain in the right groin area. OBJECTIVE: VITAL SIGNS: Temperature 98.5, pulse 75, respirations 20, blood pressure 130/61, oxygen saturation 98% on room air. GENERAL: Well-developed, well-nourished male in no acute distress, sitting up in bed. LUNGS: Clear to auscultation bilaterally. HEART: Regular rate and rhythm. ABDOMEN: Soft, nontender, nondistended, normoactive bowel sounds. GENITOURINARY: Right inguinal area with no tenderness to palpation. No swelling noted. EXTREMITIES: Trace bilateral lower extremity edema. IMPRESSION: 1. Seroma/intractable groin pain which improved after patient's drainage of the seroma yesterday. The patient with a CT cystogram and no apparent connection between the bladder and the right groin a [place]. Patient will remain on analgesia. We will continue to monitor patient for further swelling in the groin area and recurrence of the seroma. 2. Urinary retention, improved. Patient is urinating, catheter has been removed. We will continue with current plan of action. 3. Constipation, improved. We will continue with diet and meds. 4. Hypothyroidism, stable. Continue the patient's medications. 5. Hypertension/orthostatic hypertension, stable. Continue with p.r.n. medications. Dictated By: KATERINA FAUSTIN MD, SR/JANETTE Conf#: [id number] DID#: [id number]
[2017-04-22 13:11] VITALS: BP 174/82; RESP 20
--- NOTE | 2017-04-22 15:52 | PN ---
Date/Time of Note Date/Time of Note DATE: 04/22/17 TIME: 15:45 Assessment/Plan Lines/Catheters IV Catheter Type (from Nrs): Peripheral IV Fernandez in Place (from Nrs): No Assessment/Plan Chief Complaint/Hosp Course 1. Large low density fluid collections are identified in the surgical bed, likely seroma: s/p IR drain; cultures: no growth; right groin lump increasing: CT noted:no communication with bladder -pain management for right groin 2. Right groin pain 2/2 #1-improved -pain management -ice pack to area as tolerated -as above 3. Scrotal edema: improved -elevate scrotum 4. Hypothyroid -medical management 5. BPH: -continue medical management -encourage frequent bladder emptying 6. Constipation -bowel regimen optimization 7. Hematuria: drops of blood after urination; resolved Thank you. Patient seen and examined in collaboration with Dr. Jose Juan Haney. Problems: Subjective 24 Hr Interval Summary S/p drainage of seroma. Improved pain however increasing pain with movement/ ambulation. Fernandez dc'd -no hematuria. No fevers, chills, sob, congested cough, cp, palpitations, vega, dizziness, n/v/d/dysuria. Exam/Review of Systems Vital Signs Vitals Vital Signs Date Time Temp Pulse Resp B/P Pulse Ox O2 Delivery O2 Flow Rate FiO2 04/22/17 13:11 98.7 62 20 174/82 97 Intake and Output 04/21/17 04/21/17 04/22/17 15:00 23:00 07:00 Intake Total 845 ml 1200 ml 1520 ml Output Total 243 ml 1500 ml 2600 ml Balance 602 ml -300 ml -1080 ml Exam Free Text/Dictation Constitutional: alert, oriented Psych: anxiety Head: atraumatic, normocephalic Eyes: nl lids, nl sclera ENMT: mucosa pink and moist, nl nasal mucosa & septum Neck: non-tender, supple Respiratory: clear to auscultation, normal air movement Cardiovascular: nl pulses, regular rate and rhythm Gastrointestinal: non-tender, other (palpable mass right groin smaller in size , tenderness), soft, tenderness (right pelvis) Genitourinary - Male: No nl scrotum (scrotal edema improved) Musculoskeletal: nl extremities to inspection Extremities: normal pulses, No edema Neurological: nl mental status, nl speech, nl strength Skin: nl turgor, No rash or lesions Results Result Diagram: 04/20/17 0539 04/20/17 0539 PRINCESS POP NP Apr 22, 2017 15:52
[2017-04-22] MEDS: IBUPROFEN 800 MG TAB PO PRN ×2 (16:53→23:41)
[2017-04-22] MEDS: TAMSULOSIN (SR) 0.4 MG CAP PO SCH (17:43)
[2017-04-22 20:55] VITALS: BP 177/78; RESP 18
[2017-04-22] MEDS: ACETAMINOPHEN 325 MG TAB PO PRN (21:39)
[2017-04-23 02:44] VITALS: BP 161/77; RESP 18
[2017-04-23] MEDS: ACETAMINOPHEN 325 MG TAB PO PRN ×2 (06:03→12:59)
[2017-04-23] MEDS: LEVOTHYROXINE 125 MCG TAB PO SCH (06:03)
[2017-04-23] MEDS: PANTOPRAZOLE (EC) 40 MG TAB PO SCH (06:03)
[2017-04-23 07:17] VITALS: BP 182/77; RESP 20
--- NOTE | 2017-04-23 08:04 | PDOCDIS ---
Discharge Instructions DIAGNOSIS Discharge Diagnosis right groin seroma s/p drainage x 2 CONDITION Patient Condition: Good HOME CARE INSTRUCTIONS: Diet Instructions: RegularSpecial Diet: regular ACTIVITY: Activity Restrictions: No Restrictions FOLLOW UP/APPOINTMENTS Follow-up Plan Follow up with Dr. Armenta as scheduled 04/29; follow up with Dr. Haney per his request KATERINA ARMENTA MD- Apr 23, 2017 08:04
[2017-04-23] MEDS: BETHANECHOL 25 MG TAB PO SCH ×2 (08:07→12:59)
[2017-04-23] MEDS ORDERED: HYDR2TAB36 PO (08:07)
[2017-04-23] MEDS ORDERED: IBUP800T25 PO (08:07)
[2017-04-23] MEDS: DOXYCYCLINE 40 MG PO SCH (08:08)
[2017-04-23] MEDS: VALACYCLOVIR 500 MG TAB PO SCH (08:08)
[2017-04-23] MEDS: FINASTERIDE 5 MG TAB PO SCH (08:10)
[2017-04-23] MEDS: IBUPROFEN 800 MG TAB PO PRN ×2 (09:02→14:54)
[2017-04-23] MEDS: POLYETHYLENE GLYCOL 17 GM PACKET PO SCH (10:06)
[2017-04-23] MEDS: DOCUSATE SODIUM 100 MG CAP PO SCH (10:06)
[2017-04-23] MEDS: CITRUCEL 500 MG PO SCH (10:06)
--- NOTE | 2017-04-23 10:57 | PN ---
DATE: 04/23/2017 SUBJECTIVE: The patient is feeling overall better, has some mild pain and at times. Moderate pain in the right groin. OBJECTIVE: VITAL SIGNS: Temperature 97.5, pulse 59, respirations 20, blood pressure 182/77, oxygen saturation 97% on room air. GENERAL: Well-developed, well-nourished male in no acute distress. LUNGS: Clear to auscultation bilaterally. HEART: Bradycardic but regular. ABDOMEN: Soft, nontender, nondistended. Right groin slightly increased in size to right groin sero ma with mild to moderate tenderness to palpation, decreased edema. EXTREMITIES: No cyanosis, clubbing or edema. NEUROLOGIC: Nonfocal. LABORATORY DATA: White blood cell count 5.1, hemoglobin 13.9, hematocrit 41, platelets of 188. ASSESSMENT AND PLAN 1. Intractable right groin pain seroma. The patient has recurrence and increase in size since yest erday of the seroma but patient is stable for discharge to home. We will continue with ibuprofen 80 0 mg q.6h. as well as p.r.n. Dilaudid 2 mg 1-2 q.4h. p.r.n. moderate to severe pain and patient will follow up with Dr. Haney as outpatient well as myself. 2. Urinary retention/benign prostatic hypertrophy remains stable. Continue with patient urinating on his own and will continue Urecholine t.i.d. and have patient follow up with his urologist. 3. Constipation remains stable. Continue the patient's medications and diet as well as fiber suppl ements. 4. Hypothyroidism, stable. Continue the patient's medications. 5. Folliculitis. We will continue with patient's doxycycline and clindamycin. 6. Current hepatic conjunctivitis. We will continue with patient's valacyclovir. 7. Discharge planning. Patient is stable for discharge to home. Patient has home health already f rom his last hospitalization. We will resume this after hospitalization. The patient has up with Wayne Armenta MD in 1 week and will follow up as scheduled next , 04/29/2016 and will have reginaldo judge called Dr. Haney office to schedule followup with him per his request. Dictated By: KATERINA ARMENTA MD SR/JANETTE Conf#: [id number] [facility]#: [id number]
--- NOTE | 2017-04-23 12:07 | DS ---
DATE OF ADMISSION: 04/18/2017 DATE OF DISCHARGE: 04/23/2017 ADMITTING DIAGNOSIS: Intractable right groin pain, seroma. DISCHARGE DIAGNOSIS: Intractable right groin pain, seroma. SECONDARY DIAGNOSES: Urinary retention, benign prostatic hypertrophy, orthostatic hypotension, hype rtension, herpetic conjunctivitis, folliculitis, hypothyroidism, chronic constipation. CONSULTATIONS: With Dr. Rico from urology and Dr. Haney from general surgery. PROCEDURES: 1. Abdominal pelvic CT scan on 04/16/2017 showing a 13-cm seroma in the right groin area and also a small nonobstructive right renal calculus and aortoiliac atherosclerotic calcifications and diverti cula. 2. Needle aspiration by ultrasound done on 04/17/2017. 3. Repeat abdominal pelvic CT scan on 04/19/2017 showing approximately 9 cm collection in the right groin area. 4. Abdominal CT-guided drainage on 04/21/2017 with removal of fluid from the right groin seroma and then a pelvic CT cystogram which showed successful aspiration of fluid collection as well as no com munication between the bladder and the right side of the pelvis. HOSPITAL COURSE: The patient is an 81-year-old male with recent bilateral inguinal hernia repair, w ho developed a right groin seroma with intractable pain and needed to be admitted. The patient had initially ultrasound-guided drainage with resolution in his pain and improvement in mobility. Howev er, the fluid recurred and the patient needed recurrent drainage of the seroma. The patient has bee n receiving both [place] as well as Dilaudid for pain control with some improvement in his overall con dition. There was also the worry that the patient's bladder issues may be communicating with the [facility] groin. The patient also had an episode of hematuria and Dr. Rico was consulted to help with this. Patient had catheter placement and continued to improve. The patient underwent CT cystogram to make sure there was no communication between the bladder and the pelvic area. The CT cystogram d emonstrated no communication between the two. The patient's catheter was removed and the patient vega s been continuing to urinate, although slow, but nonetheless being able to empty his bladder signifi cantly. The patient's pain control has remained reasonable with ibuprofen and p.r.n. [place]. Patie nt has improved and is stable for discharge to home. DISCHARGE MEDICATIONS: 1. Levothyroxine 125 mcg daily. 2. Finasteride 5 mg daily. 3. Flomax 0.4 mg daily. 4. Doxycycline 100 mg daily. 5. Urecholine 25 mg t.i.d. 6. Ibuprofen 800 mg q. 6 hours p.r.n. 7. Dilaudid 2 mg 1 to 2 q. 4 hours p.r.n. severe pain. 8. Omeprazole 20 mg daily. 9. Citrucel b.i.d. 10. MiraLax b.i.d. 11. Colace 100 mg daily. 12. Valacyclovir 1 gram b.i.d. DISCHARGE PLANS: 1. The patient will follow with Dr. Armenta on 04/29/2016 as scheduled. 2. The patient will follow up with Dr. Haney per his request. 3. We will resume home health that was started after his last hospitalization. Dictated By: KATERINA ARMENTA MD, SR/JANETTE Conf#: [id number] DID#: [id number]
--- NOTE | 2017-04-23 12:07 | DS ---
DATE OF ADMISSION: 04/18/2017 DATE OF DISCHARGE: 04/23/2017 ADMITTING DIAGNOSIS: Intractable right groin pain, seroma. DISCHARGE DIAGNOSIS: Intractable right groin pain, seroma. SECONDARY DIAGNOSES: Urinary retention, benign prostatic hypertrophy, orthostatic hypotension, hype rtension, herpetic conjunctivitis, folliculitis, hypothyroidism, chronic constipation. CONSULTATIONS: With Dr. Rico from urology and Dr. Haney from general surgery. PROCEDURES: 1. Abdominal pelvic CT scan on 04/16/2017 showing a 13-cm seroma in the right groin area and also a small nonobstructive right renal calculus and aortoiliac atherosclerotic calcifications and diverti cula. 2. Needle aspiration by ultrasound done on 04/17/2017. 3. Repeat abdominal pelvic CT scan on 04/19/2017 showing approximately 9 cm collection in the right groin area. 4. Abdominal CT-guided drainage on 04/21/2017 with removal of fluid from the right groin seroma and then a pelvic CT cystogram which showed successful aspiration of fluid collection as well as no com munication between the bladder and the right side of the pelvis. HOSPITAL COURSE: The patient is an 81-year-old male with recent bilateral inguinal hernia repair, w ho developed a right groin seroma with intractable pain and needed to be admitted. The patient had initially ultrasound-guided drainage with resolution in his pain and improvement in mobility. Howev er, the fluid recurred and the patient needed recurrent drainage of the seroma. The patient has bee n receiving both [place] as well as Dilaudid for pain control with some improvement in his overall con dition. There was also the worry that the patient's bladder issues may be [facility]. The patient also had an episode of hematuria and Dr. Rico was consulted to help with this. Patient had catheter placement and continued to improve. The patient underwent CT cystogram to make sure there was no communication between the bladder and the pelvic area. The CT cystogram d emonstrated no communication between the two. The patient's catheter was removed and the patient vega s been continuing to urinate, although slow, but nonetheless being able to empty his bladder signifi cantly. The patient's pain control has remained reasonable with ibuprofen and p.r.n. [place]. Patie nt has improved and is stable for discharge to home. DISCHARGE MEDICATIONS: 1. Levothyroxine 125 mcg daily. 2. Finasteride 5 mg daily. 3. Flomax 0.4 mg daily. 4. Doxycycline 100 mg daily. 5. Urecholine 25 mg t.i.d. 6. Ibuprofen 800 mg q. 6 hours p.r.n. 7. Dilaudid 2 mg 1 to 2 q. 4 hours p.r.n. severe pain. 8. Omeprazole 20 mg daily. 9. Citrucel b.i.d. 10. MiraLax b.i.d. 11. Colace 100 mg daily. 12. Valacyclovir 1 gram b.i.d. DISCHARGE PLANS: 1. The patient will follow with Dr. Armenta on 04/29/2016 as scheduled. 2. The patient will follow up with Dr. Haney per his request. 3. We will resume home health that was started after his last hospitalization. Dictated By: KATERINA ARMENTA MD, SR/JANETTE Conf#: [id number] DID#: [id number]
[2017-04-23 13:22] VITALS: BP 175/70; PULSE 66; RESP 16
--- NOTE | 2017-04-23 20:43 | PN ---
Date/Time of Note Date/Time of Note DATE: 04/23/17 TIME: 20:41 Assessment/Plan Lines/Catheters IV Catheter Type (from Nrsg): Saline Lock Fernandez in Place (from Nrs): No Assessment/Plan Chief Complaint/Hosp Course 1. Large low density fluid collections are identified in the surgical bed, likely seroma: s/p IR drain; cultures: no growth; right groin lump increasing: CT noted:no communication with bladder -pain management for right groin seroma 2. Right groin pain 2/2 #1-improved -pain management -ice pack to area as tolerated -as above 3. Scrotal edema: improved -elevate scrotum 4. Hypothyroid -medical management 5. BPH: -continue medical management -encourage frequent bladder emptying 6. Constipation -bowel regimen optimization 7. Hematuria: drops of blood after urination; resolved Thank you Problems: Subjective 24 Hr Interval Summary Improved pain however increasing pain with movement/ambulation. No hematuria. No fevers, chills, sob, congested cough, cp, palpitations, vega, dizziness, n/v/d/ dysuria. Exam/Review of Systems Vital Signs Vitals Vital Signs Date Time Temp Pulse Resp B/P Pulse Ox O2 Delivery O2 Flow Rate FiO2 04/23/17 13:22 98.4 66 16 175/70 97 Room Air Intake and Output 04/22/17 04/22/17 04/23/17 15:00 23:00 07:00 Intake Total 1200 ml 800 ml Balance 1200 ml 800 ml Exam Free Text/Dictation Constitutional: alert, oriented Psych: anxiety Head: atraumatic, normocephalic Eyes: nl lids, nl sclera ENMT: mucosa pink and moist, nl nasal mucosa & septum Neck: non-tender, supple Respiratory: clear to auscultation, normal air movement Cardiovascular: nl pulses, regular rate and rhythm Gastrointestinal: non-tender, other (palpable mass right groin smaller in size , tenderness), soft, tenderness (right pelvis) Genitourinary - Male: No nl scrotum (scrotal edema improved) Musculoskeletal: nl extremities to inspection Extremities: normal pulses, No edema Neurological: nl mental status, nl speech, nl strength Skin: nl turgor, No rash or lesions Results Result Diagram: 04/23/1763804/23/1739 TAYLOR FRITZ MD Apr 23, 2017 20:43
== END 2017-04-23 16:05 | disposition home or self-care (01) | DRG 920 ==
LOC: E/R 14:21 → INTOOBSV 15:29 → MS2 15:29 → OBSVTOIN 04-18 15:54
PROVIDERS: ADMIT Internal Medicine; ATTEND Internal Medicine
PROC: 0Y953ZZ Drainage of Right Inguinal Region, Percutaneous Approach (ICD-10-PCS; principal; 2017-04-17)
PROC: 0W9J3ZZ Drainage of Pelvic Cavity, Percutaneous Approach (ICD-10-PCS; 2017-04-21)
DX: L76.34 Postprocedural seroma of skin and subcutaneous tissue following other procedure (principal); N13.8 Other obstructive and reflux uropathy; B00.53 Herpesviral conjunctivitis; R31.9 Hematuria, unspecified; Y83.8 Other surgical procedures as the cause of abnormal reaction of the patient, or of later complication, without mention of misadventure at the time of the procedure; N40.1 Benign prostatic hyperplasia with lower urinary tract symptoms; R33.8 Other retention of urine; R39.14 Feeling of incomplete bladder emptying; Z72.0 Tobacco use; K59.00 Constipation, unspecified; N50.89 Other specified disorders of the male genital organs; Z87.891 Personal history of nicotine dependence; E03.9 Hypothyroidism, unspecified; I95.1 Orthostatic hypotension
CPT/HCPCS: 36415; 72193; 74176; 77012; 80048; 80053; 81001; 81003; 83605; 83690; 84155; 85025; 87070; 87081; 87086; 96374; 96375; G0378; J1170; J2250; J2270; J2405; J3010; J7030; Q9967

== ENCOUNTER 2017-09-29 12:36 | Emergency (ER) | END 2017-09-29 18:19 | disposition home or self-care (01) ==

== ENCOUNTER 2017-10-20 08:37 | Inpatient (IN) | END 2017-10-22 18:05 | disposition home or self-care (01) | DRG 920 ==

== ENCOUNTER 2017-11-08 06:51 | Day surgery (SDC) | END 2017-11-08 11:30 | disposition home or self-care (01) ==

== ENCOUNTER → 2017-12-23 | Outpatient (CLI) | END | disposition home or self-care (01) ==